=== PATIENT | male | born 1945 | race Caucasian/White ===

== ENCOUNTER 2019-12-10 17:03 | Emergency (ER) | payer MEDICARE, OTHER ==
[~2019-12-10] VITALS: Ht 180.3 cm; Wt 117.9 kg
[~2019-12-10 17:03] MED LIST: AMANTADINE; AMIODARONE; HUMALOG; LANTUS; LISINOPRIL; LOPRESSOR; [UNRECOGNIZED DRUG - OTHER]; amlodipine; calcium; fish oil
--- OUTSIDE RECORDS SUMMARY | 2019-12-10 17:05 | XMS REPORT | Summary of Care ---
Author Author [facility] [[email or web address]] - Health Organization [facility] [[email or web address]] - Health Address Unknown Phone Unavailable Care Team Providers Care Executive Chef Name Role Phone Stefan Allison PCP Reason for Visit * Reason Comments Thyroid Problem 4 month follow up Diabetes 4 month follow up Encounter Details Care Team Description Date Type Department Miguel Patel MD [address] [place] [id number] Hypoglycemia due to insulin (Primary Dx); Type 2 diabetes mellitus with stage 2 chronic kidney disease, with long-term current use of insulin; Type 2 diabetes mellitus without complication, with long-term current use of insulin; Postoperative hypothyroidism; History of thyroid cancer; Chronic atrial fibrillation 06/21/2019 Office Visit [facility] Endocrinology, [address] [address] Allergies Comments Active Allergy Reactions Severity Noted Date Iodine contrast* per patient Shakes Shaking Shaking Iodine And Iodide Other - See High 06/21/2008 Containing Products comments, Palpitations documented as of this encounter (statuses as of 06/21/2019) Medications End Date Status Medication Sig Dispensed Refills Start Date Active furosemide 40 mg tablet Take 40 mg by 0 mouth daily. Active tamsulosin 0.4 mg 24 hr Take by 0 capsule mouth daily. Active lisinopril 40 mg tablet Take 40 mg by 0 mouth daily. Active warfarin 5 mg tablet Take 5 mg by 0 mouth. Active glucagon 1 mg injection Inject 1 mg 0 intravenously once now. Active syringe-needle,insulin,0. 0 5 mL (BD INSULIN SYRINGE MISC) Active linaclotide (LINZESS) 145 Take by 0 mcg capsule mouth. Active amiodarone 100 mg tablet Take 100 mg 0 by mouth daily. Active amLODIPine 10 mg tablet Take 10 mg by 0 mouth daily. Active metoprolol tartrate 50 mg Take 50 mg by 0 tablet mouth 2 (two) times daily. Active polyethylene glycol Take 17 g by 0 (MIRALAX) 17 gram/dose mouth daily. powder Active rosuvastatin 10 mg tablet Take 10 mg by 0 mouth at bedtime. Active flaxseed oil (OMEGA 3 Take by 0 ORAL) mouth. Active calcium carbonate/vitamin Take by 0 D2 (CALCIUM 600 + D ORAL) mouth. Active finasteride 5 mg tablet Take 5 mg by 0 mouth daily. Active febuxostat (ULORIC ORAL) Take by 0 mouth. Active Multivitamins with Take by 0 Fluoride (MULTI-VITAMIN mouth. ORAL) Active NIACIN, BULK, MISC 0 Active LEVOTHYROXINE 200 mcg TAKE 1 TABLET 90 tablet 0 tabletIndications: BY MOUTH 9 Acquired hypothyroidism EVERY DAY IN THE MORNING Active Insulin [place], 5 needles a 500 Each 1 Disposable, (BD day 9 ULTRA-FINE MICRO PEN NEEDLE) 32 gauge x 1/4" NdleIndications: Type 2 diabetes mellitus with stage 2 chronic kidney disease, with long-term current use of insulin Active insulin glargine (LANTUS inject 60 60 mL U-100 INSULIN) 100 Units under 9 unit/mL the skin at injectionIndications: bedtime. Type 2 diabetes mellitus without complication, with long-term current use of insulin Active insulin aspart RAPID inject 15 5 Vial 1 (NOVOLOG U-100 INSULIN Units under 9 ASPART) 100 unit/mL the skin 3 injectionIndications: (three) times Type 2 diabetes mellitus daily with with stage 2 chronic meals. kidney disease, with long-term current use of insulin 06/21/2019 Discontinued insulin aspart RAPID inject under 0 (NOVOLOG U-100 INSULIN the skin 3 ASPART) 100 unit/mL (three) times injection daily with meals. 06/21/2019 Discontinued insulin aspart U-100 inject 15 3 Box (NOVOLOG FLEXPEN U-100 Units under 9 INSULIN) 100 unit/mL the skin 3 injectionIndications: (three) times Type 2 diabetes mellitus daily before with stage 2 chronic meals. kidney disease, with long-term current use of insulin 06/21/2019 Discontinued Insulin [place], 5 needles a 500 Each Disposable, (BD day ULTRA-FINE MICRO PEN NEEDLE) 32 gauge x 1/4" NdleIndications: Type 2 diabetes mellitus with stage 2 chronic kidney disease, with long-term current use of insulin 06/21/2019 Discontinued LANTUS U-100 INSULIN 100 INJECT 50 90 mL 0 unit/mL UNITS 9 solutionIndications: Type SUBCUTANEOUSL 2 diabetes mellitus Y 2 TIMES A without complication, DAY with long-term current use of insulin documented as of this encounter (statuses as of 06/21/2019) Active Problems Problem Noted Date Type 2 diabetes mellitus with stage 2 chronic kidney disease, with 02/19/2019 long-term current use of insulin Postoperative hypothyroidism 02/19/2019 History of thyroid cancer 02/19/2019 Chronic atrial fibrillation 02/19/2019 documented as of this encounter (statuses as of 06/21/2019) Social History Date Tobacco Use Types Packs/Day Years Used Former Smoker Smokeless Tobacco: Former User Sex Assigned at Date Recorded Not on file Industry Job Start Date Occupation Not on file Not on file Not on file Travel End Travel History Travel Start No recent travel history available. documented as of this encounter Last Filed Vital Signs Reading Time Taken Comments Vital Sign 119/71 06/21/2019 10:24 AM CDT Blood Pressure 94 06/21/2019 10:24 AM CDT Pulse 36.3 C (97.3 F) 06/21/2019 10:24 AM CDT Temperature 17 06/21/2019 10:24 AM CDT Respiratory Rate - - Oxygen Saturation - - Inhaled Oxygen Concentration 119.7 kg (263 lb 14.4 oz) 06/21/2019 10:24 AM CDT Weight 180.3 cm (5' 11") 06/21/2019 10:24 AM CDT Height 36.81 06/21/2019 10:24 AM CDT Body Mass Index documented in this encounter Progress Notes * Miguel Patel MD - 06/21/2019 10:30 AM CDT Cc: Chief Complaint Patient presents with Thyroid Problem 4 month follow up Diabetes 4 month follow up Michael Zamora is a 73 year old male. Patient hypothyroid since he had his thyroid removed due to thyroid cancer. He is on large dose of thyroids, need his thyroid labs today. Known diabetic with kidney demage on large doses of insulins. Allergies Michael is allergic to iodine and iodide containing products. Medications Outpatient Medications Prior to Visit Medication Sig Dispense Refill LEVOTHYROXINE 200 mcg tablet TAKE 1 TABLET BY MOUTH EVERY DAY IN THE MORNING 90 tablet 0 amiodarone 100 mg tablet Take 100 mg by mouth daily. amLODIPine 10 mg tablet Take 10 mg by mouth daily. calcium carbonate/vitamin D2 (CALCIUM 600 + D ORAL) Take by mouth. febuxostat (ULORIC ORAL) Take by mouth. finasteride 5 mg tablet Take 5 mg by mouth daily. flaxseed oil (OMEGA 3 ORAL) Take by mouth. furosemide 40 mg tablet Take 40 mg by mouth daily. linaclotide (LINZESS) 145 mcg capsule Take by mouth. lisinopril 40 mg tablet Take 40 mg by mouth daily. metoprolol tartrate 50 mg tablet Take 50 mg by mouth 2 (two) times daily. Multivitamins with Fluoride (MULTI-VITAMIN ORAL) Take by mouth. NIACIN, BULK, MISC polyethylene glycol (MIRALAX) 17 gram/dose powder Take 17 g by mouth daily. syringe-needle,insulin,0.5 mL (BD INSULIN SYRINGE MISC) tamsulosin 0.4 mg 24 hr capsule Take by mouth daily. warfarin 5 mg tablet Take 5 mg by mouth. LANTUS U-100 INSULIN 100 unit/mL solution INJECT 50 UNITS SUBCUTANEOUSLY 2 T IMES A DAY 90 mL 0 insulin aspart U-100 (NOVOLOG FLEXPEN U-100 INSULIN) 100 unit/mL injection i nject 15 Units under the skin 3 (three) times daily before meals. 3 Box 1 Insulin [place], Disposable, (BD ULTRA-FINE MICRO PEN NEEDLE) 32 gauge x 1/4 " Ndle 5 needles a day 500 Each 1 glucagon 1 mg injection Inject 1 mg intravenously once now. rosuvastatin 10 mg tablet Take 10 mg by mouth at bedtime. insulin aspart RAPID (NOVOLOG U-100 INSULIN ASPART) 100 unit/mL injection in ject under the skin 3 (three) times daily with meals. No facility-administered medications prior to visit. Histories Past Medical History: Diagnosis Date Anemia Asthma Atrial fibrillation Diabetes High cholesterol Hypertension Obesity Sleep apnea Thyroid activity decreased Past Surgical History: Procedure Laterality Date APPENDECTOMY COLONOSCOPY THYROIDECTOMY Social History Socioeconomic History Marital status: Spouse name: Not on file Number of children: Not on file Years of education: Not on file Highest education level: Not on file Occupational History Not on file Social Needs Financial resource strain: Not on file Food insecurity: Worry: Not on file Inability: Not on file Transportation needs: Medical: Not on file Non-medical: Not on file Tobacco Use Smoking status: Former Smoker Smokeless tobacco: Former User Substance and Sexual Activity Alcohol use: Not on file Drug use: Not on file Sexual activity: Not on file Lifestyle Physical activity: Days per week: Not on file Minutes per session: Not on file Stress: Not on file Relationships Social connections: Talks on phone: Not on file Gets together: Not on file Attends religion service: Not on file Active member of club or organization: Not on file Attends meetings of clubs or organizations: Not on file Relationship status: Not on file Intimate partner violence: Fear of current or ex partner: Not on file Emotionally abused: Not on file Physically abused: Not on file Forced sexual activity: Not on file Other Topics Concern Not on file Social History Narrative Not on file No family history on file. Review of Systems Constitutional: Negative. HENT: Negative. Respiratory: Negative. Cardiovascular: Negative. Gastrointestinal: Negative. Musculoskeletal: Negative. Neurological: Negative. Psychiatric/Behavioral: Negative. Endocrine: Endocrine negative Vital Signs BP 119/71 (BP Location: Left arm, Patient Position: Sitting, BP CUFF SIZE: Adult Large) | Pulse 94 | Temp 36.3 C (97.3 F) (Oral) | Resp 17 | Ht 5' 11" ( 1.803 m) | Wt 263 lb 14.4 oz (119.7 kg) | BMI 36.81 kg/m Physical Exam Constitutional: He is oriented to person, place, and time. He appears well-devel oped and well-nourished. Eyes: Pupils are equal, round, and reactive to light. Conjunctivae and EOM are n ormal. Left eye exhibits no discharge. No scleral icterus. Neck: Normal range of motion. Neck supple. No JVD present. No tracheal deviation present. No thyromegaly present. Cardiovascular: Normal rate, regular rhythm, normal heart sounds and intact dist al pulses. Exam reveals no gallop and no friction rub. No murmur heard. Pulmonary/Chest: Effort normal and breath sounds normal. No respiratory distress . He has no wheezes. He has no rales. He exhibits no tenderness. Abdominal: Soft. Bowel sounds are normal. He exhibits no distension and no mass. There is no tenderness. There is no rebound and no guarding. No hernia. Musculoskeletal: Normal range of motion. He exhibits no edema, tenderness or def ormity. Lymphadenopathy: He has no cervical adenopathy. Neurological: He is alert and oriented to person, place, and time. He displays n ormal reflexes. No cranial nerve deficit or sensory deficit. He exhibits normal muscle tone. Coordination normal. Skin: Skin is warm and dry. Capillary refill takes less than 2 seconds. No rash noted. No erythema. No pallor. Psychiatric: He has a normal mood and affect. His behavior is normal. Judgment a nd thought content normal. Assessment/Plan Michael was seen today for thyroid problem and diabetes. Diagnoses and all orders for this visit: Hypoglycemia due to insulin Type 2 diabetes mellitus with stage 2 chronic kidney disease, with long-term cur rent use of insulin - Insulin [place], Disposable, (BD ULTRA-FINE MICRO PEN NEEDLE) 32 gauge x 1 /4" Ndle; 5 needles a day - insulin aspart RAPID (NOVOLOG U-100 INSULIN ASPART) 100 unit/mL injection; inject 15 Units under the skin 3 (three) times daily with meals. Type 2 diabetes mellitus without complication, with long-term current use of ins ulin - insulin glargine (LANTUS U-100 INSULIN) 100 unit/mL injection; inject 60 U nits under the skin at bedtime. Postoperative hypothyroidism - THYROID STIMULATING HORMONE; Future History of thyroid cancer Chronic atrial fibrillation Patient was educated and enquired about diabetic foot evaluation and management. Patient was reminded about risks for diabetic foot as duration of disease, smoki ng, poor glycemic control, diabetic cardiovascular, renal and retinal complicati ons and poor wound healing. Patient was questioned about presence of foot deformity, decrease in pain sensat ion and altered pressure perception, discoloration, tender spots, gait balance a nd limited feet joint mobility. Patient feet were checked for anatomic deformity, ulceration between the toes an d underneath, callous formation, erythema, warmth and tenderness and swelling. Penal pulse were felt and patient was asked about evidence of impaired circulati on and skin damage. Feet were examined for presence of claw foot, collapse of arch, loss of small in trinsic foot muscles, any bony prominence and deep tendon ankle reflexes. Enquiry was made about smoking,claudication, use of heating devices, lower limb bypass procedures, amputations, therapeutic foot wear or customized shoes use. Patient was reminded to examine feet daily between and underneath toe toes over pressure areas with proper light. Not to wear shoes that are tight and wash feet with luke warm water daily. Toe nails to be trimed to the shape of toes. Need to calculate ankle brachial indicis and examination monofilament were discu ssed. No ulcers or callus. Thyroid doses to be adjusted after todays labs. I have reduced his insulin doses due to nocturnal hypoglycemias. documented in this encounter Plan of Treatment Care Team Description Date Type Specialty Miguel Patel MD [address] [place] [id number] [phone] 09/21/2019 Office Visit Endocrinology Diabetes & Metabolism Order Schedule Name Type Priority Associated Diagnoses Expected: 06/21/2019, Expires: 07/22/2019 THYROID STIMULATING LAB Routine Postoperative HORMONE hypothyroidism Health Maintenance Due Date Last Done Comments HEPATITIS C (HCV) SCREEN 1945 EYE EXAM 1955 LDL-C 1955 URINE MICROALBUMIN 1955 FOOT EXAM 1963 DTaP,Tdap,and Td Vaccines 1964 (1 - Tdap) COLONOSCOPY 1995 Zoster Recombinant 1995 Vaccine (SHINGRIX) (1 of 2) LUNG CANCER SCREEN: 2000 Recommended for age 55-80 with 30 + pack year history Medicare Wellness Visit 2010 PNEUMOCOCCAL VACCINES 65+ 2010 (1 of 2 - PCV13) INFLUENZA VACCINE 07/25/2019 09/05/2017, 09/15/2013, 08/10/2012, Additional history exists HgA1C 08/22/2019 02/19/2019 CREATININE (SERUM) 02/20/2020 02/19/2019 documented as of this encounter Results Not on filedocumented in this encounter Visit Diagnoses Diagnosis Hypoglycemia due to insulin - Primary Type 2 diabetes mellitus with stage 2 chronic kidney disease, with long-term current use of insulin Type 2 diabetes mellitus without complication, with long-term current use of insulin Postoperative hypothyroidism Postsurgical hypothyroidism History of thyroid cancer Personal history of malignant neoplasm of thyroid Chronic atrial fibrillation Atrial fibrillation documented in this encounter Insurance Type Payer Benefit Subscriber ID Effective Phone Address Plan / Dates Group Medicare Adv O [facility] [id number] 2017-P MANAGED MEDICARE HEALTHCARE resent MEDICARE ADV O documented as of this encounter
--- OUTSIDE RECORDS SUMMARY | 2019-12-10 17:05 | XMS REPORT | Summary of Care ---
Author Author [facility] - Health Organization [facility] - Health Address Unknown Phone Unavailable Care Team Providers Care Spanish Professor Name Role Phone Stefan Allison PCP Reason for Visit * Reason Comments Thyroid Problem 4 month follow up Diabetes 4 month follow up Encounter Details Care Team Description Date Type Department Miguel Patel MD [address] [place] [phone] Hypoglycemia due to insulin (Primary Dx); Type 2 diabetes mellitus with stage 2 chronic kidney disease, with long-term current use of insulin; Type 2 diabetes mellitus without complication, with long-term current use of insulin; Postoperative hypothyroidism; History of thyroid cancer; Chronic atrial fibrillation 06/21/2019 Office Visit [facility] Endocrinology, [address] [phone] Allergies Comments Active Allergy Reactions [...] EVERY DAY IN THE MORNING Active Insulin [place], 5 needles a 500 Each 1 Disposable, [...] current use of insulin 06/21/2019 Discontinued Insulin [place], 5 needles a 500 Each Disposable, (BD [...] daily before meals. 3 Box 1 Insulin [place], Disposable, (BD ULTRA-FINE MICRO PEN NEEDLE) 32 [...] file Gets together: Not on file Attends alevism service: Not on file Active member of [...] cur rent use of insulin - Insulin [place], Disposable, (BD ULTRA-FINE MICRO PEN NEEDLE) 32 [...] Description Date Type Specialty Miguel Patel MD [address] [place] [id number] [phone] 09/21/2019 Office Visit Endocrinology Diabetes & Metabolism [...] Plan / Dates Group Medicare Adv O [facility] [id number] 2017-P MANAGED MEDICARE HEALTHCARE resent MEDICARE ADV O documented as of this encounter
--- OUTSIDE RECORDS SUMMARY | 2019-12-10 17:05 | XMS REPORT ---
Author Author [facility] Address Unknown Phone Unavailable Care Team Providers Care Inserter Name Role Phone ZARIA SANFORD Unavailable Unavailable Payers Payer Name Policy Type Policy Number Effective Date Expiration Date Problems This patient has no known problems. Allergies, Adverse Reactions, Alerts Allergy Name Allergy Type Status Severity Reaction(s) Onset Date Inactive Date Treating Clinician Comments iodine DA Active MO 2017-09-03 00:00:00 minocycline DA Active CA 2017-09-03 00:00:00 Medications This patient has no known medications. Results Test Description Test Time Test Comments Text Results Atomic Results Result Comments BASIC METABOLIC PANEL 2018-10-01 11:27:00 SODIUM (BEAKER) (test azpq=815) 143 meq/L 136-145 POTASSIUM (BEAKER) (test gniu=900) 3.4 meq/L 3.5-5.1 CHLORIDE (BEAKER) (test aags=789) 106 meq/L 98-107 CO2 (BEAKER) (test rtxs=846) 25 meq/L 22-29 BLOOD UREA NITROGEN (BEAKER) (test wfob=293) 27 mg/dL 7-21 CREATININE (BEAKER) (test mxwa=676) 1.91 mg/dL 0.57-1.25 GLUCOSE RANDOM (BEAKER) (test irgr=618) 120 mg/dL 70-105 CALCIUM (BEAKER) (test dsrg=854) 8.1 mg/dL 8.4-10.2 EGFR (BEAKER) (test zvwv=7485) 35 mL/min/1.73 sq m ESTIMATED GFR IS NOT ACCURATE CREATININE CLEARANCE IN PREDICTING GLOMERULAR FILTRATION RATE. ESTIMATED GFR IS NOT APPLICABLE FOR DIALYSIS PATIENTS. PROTHROMBIN TIME/[id number] 11:15:00* Test Item Value Reference Range Comments PROTIME (BEAKER) (test vvkp=506) 22.5 seconds 11.7-14.7 INR (BEAKER) (test hift=014) 2.0 <=5.9 RECOMMENDED COUMADIN/WARFARIN INR THERAPY RANGESSTANDARD DOSE: 2.0 - 3.0 Inclu bhaskar: PROPHYLAXIS for venous thrombosis, systemic embolization; TREATMENT for ana ous thrombosis and/or pulmonary embolus.HIGH RISK: Target INR is 2.5-3.5 for pat ients with mechanical heart valves.Within 24 hours, if on CoumadinCBC W/PLT COUNT & AUTO [id number] 11:09:00* Test Item Value Reference Range Comments WHITE BLOOD CELL COUNT (BEAKER) (test wmth=294) 6.5 K/ L 3.5-10.5 RED BLOOD CELL COUNT (BEAKER) (test qcrh=739) 4.59 M/ L 4.63-6.08 HEMOGLOBIN (BEAKER) (test rkda=494) 12.1 GM/DL 13.7-17.5 HEMATOCRIT (BEAKER) (test ajgk=733) 39.2 % 40.1-51.0 MEAN CORPUSCULAR VOLUME (BEAKER) (test ppka=299) 85.4 fL 79.0-92.2 MEAN CORPUSCULAR HEMOGLOBIN (BEAKER) (test qggw=391) 26.4 pg 25.7-32.2 MEAN CORPUSCULAR HEMOGLOBIN CONC (BEAKER) (test iaym=505) 30.9 GM/DL 32.3-36.5 RED CELL DISTRIBUTION WIDTH (BEAKER) (test quzg=986) 15.8 % 11.6-14.4 PLATELET COUNT (BEAKER) (test hvfq=904) 163 K/CU MM 150-450 MEAN PLATELET VOLUME (BEAKER) (test qgov=337) 10.3 fL 9.4-12.4 NUCLEATED RED BLOOD CELLS (BEAKER) (test nuwi=909) 0 /100 WBC 0-0 NEUTROPHILS RELATIVE PERCENT (BEAKER) (test hdoa=267) 77 % LYMPHOCYTES RELATIVE PERCENT (BEAKER) (test skom=032) 10 % MONOCYTES RELATIVE PERCENT (BEAKER) (test vszq=356) 8 % EOSINOPHILS RELATIVE PERCENT (BEAKER) (test bbjn=518) 4 % BASOPHILS RELATIVE PERCENT (BEAKER) (test xyug=679) 1 % NEUTROPHILS ABSOLUTE COUNT (BEAKER) (test dqir=705) 4.96 K/ L 1.78-5.38 LYMPHOCYTES ABSOLUTE COUNT (BEAKER) (test ywsc=044) 0.67 K/ L 1.32-3.57 MONOCYTES ABSOLUTE COUNT (BEAKER) (test aone=797) 0.49 K/ L 0.30-0.82 EOSINOPHILS ABSOLUTE COUNT (BEAKER) (test xnfu=806) 0.28 K/ L 0.04-0.54 BASOPHILS ABSOLUTE COUNT (BEAKER) (test fwcp=912) 0.05 K/ L 0.01-0.08 IMMATURE GRANULOCYTES-RELATIVE PERCENT (BEAKER) (test srsz=8284) 0 % 0-1 PROTHROMBIN TIME/[id number] 11:11:00* Test Item Value Reference Range Comments PROTIME (BEAKER) (test hokr=883) 29.3 seconds 11.7-14.7 INR (BEAKER) (test vuyc=735) 2.8 <=5.9 RECOMMENDED COUMADIN/WARFARIN INR THERAPY RANGESSTANDARD DOSE: 2.0 - 3.0 Inclu bhaskar: PROPHYLAXIS for venous thrombosis, systemic embolization; TREATMENT for ana ous thrombosis and/or pulmonary embolus.HIGH RISK: Target INR is 2.5-3.5 for pat ients with mechanical heart valves.BASIC METABOLIC [id number] 11:05:00* Test Item Value Reference Range Comments SODIUM (BEAKER) (test sfbs=761) 140 meq/L 136-145 POTASSIUM (BEAKER) (test kffp=821) 3.6 meq/L 3.5-5.1 CHLORIDE (BEAKER) (test ptej=906) 105 meq/L 98-107 CO2 (BEAKER) (test jyck=815) 24 meq/L 22-29 BLOOD UREA NITROGEN (BEAKER) (test owqk=132) 25 mg/dL 7-21 CREATININE (BEAKER) (test sfas=409) 1.50 mg/dL 0.57-1.25 GLUCOSE RANDOM (BEAKER) (test mxgq=452) 156 mg/dL 70-105 CALCIUM (BEAKER) (test vpqq=903) 8.6 mg/dL 8.4-10.2 EGFR (BEAKER) (test qgkx=7046) 46 mL/min/1.73 sq m ESTIMATED GFR IS NOT ACCURATE CREATININE CLEARANCE IN PREDICTING GLOMERULAR FILTRATION RATE. ESTIMATED GFR IS NOT APPLICABLE FOR DIALYSIS PATIENTS. CBC W/PLT COUNT & AUTO [id number] 10:36:00* Test Item Value Reference Range Comments WHITE BLOOD CELL COUNT (BEAKER) (test bpcr=282) 7.2 K/ L 4.0-10.0 RED BLOOD CELL COUNT (BEAKER) (test ordi=798) 4.25 M/ L 4.20-5.80 HEMOGLOBIN (BEAKER) (test wzxe=463) 12.3 GM/DL 13.0-16.8 HEMATOCRIT (BEAKER) (test xdlp=802) 38.2 % 40.0-50.0 MEAN CORPUSCULAR VOLUME (BEAKER) (test wjxu=267) 89.9 fL 82.0-98.0 MEAN CORPUSCULAR HEMOGLOBIN (BEAKER) (test eujb=420) 29.0 pg 27.0-33.0 MEAN CORPUSCULAR HEMOGLOBIN CONC (BEAKER) (test bliy=898) 32.2 GM/DL 32.0-36.0 RED CELL DISTRIBUTION WIDTH (BEAKER) (test ertk=282) 14.8 % 10.3-14.2 PLATELET COUNT (BEAKER) (test lgqz=490) 147 K/CU MM 150-430 MEAN PLATELET VOLUME (BEAKER) (test pzly=777) 8.3 fL 6.5-10.5 NUCLEATED RED BLOOD CELLS (BEAKER) (test ihyb=234) 0 /100 WBC 0-0 NEUTROPHILS RELATIVE PERCENT (BEAKER) (test hyjd=247) 71 % LYMPHOCYTES RELATIVE PERCENT (BEAKER) (test ytri=838) 17 % MONOCYTES RELATIVE PERCENT (BEAKER) (test oskl=435) 7 % EOSINOPHILS RELATIVE PERCENT (BEAKER) (test kphp=576) 4 % BASOPHILS RELATIVE PERCENT (BEAKER) (test fjer=067) 1 % NEUTROPHILS ABSOLUTE COUNT (BEAKER) (test gujf=258) 5.12 K/ L 1.80-8.00 LYMPHOCYTES ABSOLUTE COUNT (BEAKER) (test fzjj=003) 1.25 K/ L 1.48-4.50 MONOCYTES ABSOLUTE COUNT (BEAKER) (test dfyd=812) 0.52 K/ L 0.00-1.30 EOSINOPHILS ABSOLUTE COUNT (BEAKER) (test cxoy=234) 0.30 K/ L 0.00-0.50 BASOPHILS ABSOLUTE COUNT (BEAKER) (test kezv=846) 0.04 K/ L 0.00-0.20 0.00
--- OUTSIDE RECORDS SUMMARY | 2019-12-10 17:06 | XMS REPORT | Summary of Care ---
Author Author [facility] - Health Organization [facility] - Health Address Unknown Phone Unavailable Care Team Providers Care Tax Processor Name Role Phone Stefan Allison PCP Reason for Visit * Reason Comments Thyroid Problem 4 month follow up Diabetes 4 month follow up Encounter Details Care Team Description Date Type Department Miguel Patel MD [address] [place] [address] Hypoglycemia due to insulin (Primary Dx); Type 2 diabetes mellitus with stage 2 chronic kidney disease, with long-term current use of insulin; Postoperative hypothyroidism; History of thyroid cancer; Chronic atrial fibrillation 06/21/2019 Office Visit [facility] Endocrinology, [address] [address] Allergies Comments Active Allergy Reactions Severity Noted Date Iodine contrast* per patient Shakes Shaking Shaking Iodine And Iodide Other - See High 06/21/2008 Containing Products comments, Palpitations documented as of this encounter (statuses as of 06/22/2019) Medications End Date Status Medication Sig Dispensed [...] ORAL) Active NIACIN, BULK, MISC 0 Active Insulin [place], 5 needles a 500 Each 1 Disposable, (BD day 9 ULTRA-FINE MICRO PEN NEEDLE) 32 gauge x 1/4" NdleIndications: Type 2 diabetes mellitus with stage 2 chronic kidney disease, with long-term current use of insulin Active insulin glargine (LANTUS inject 60 60 mL U-100 INSULIN) 100 Units under 9 unit/mL injection the skin at bedtime. Active insulin aspart RAPID inject 15 5 Vial 1 (NOVOLOG U-100 INSULIN Units under 9 ASPART) 100 unit/mL the skin 3 injectionIndications: (three) times Type 2 diabetes mellitus daily with with stage 2 chronic meals. kidney disease, with long-term current use of insulin Active levothyroxine 175 mcg Take 1 tablet 90 tablet 1 tabletIndications: by mouth 9 Postoperative every hypothyroidism morning. 06/21/2019 Discontinued insulin aspart RAPID inject under [...] current use of insulin 06/21/2019 Discontinued Insulin [place], 5 needles a 500 Each 1 Disposable, [...] DAY with long-term current use of insulin 06/22/2019 Discontinued LEVOTHYROXINE 200 mcg TAKE 1 TABLET 90 tablet 0 tabletIndications: BY MOUTH 9 Acquired hypothyroidism EVERY DAY IN THE MORNING documented as of this encounter (statuses as of 06/22/2019) Active Problems Problem Noted Date Type 2 diabetes mellitus with stage 2 chronic kidney disease, with 02/19/2019 long-term current use of insulin Postoperative hypothyroidism 02/19/2019 History of thyroid cancer 02/19/2019 Chronic atrial fibrillation 02/19/2019 documented as of this encounter (statuses as of 06/22/2019) Social History Date Tobacco Use Types Packs/Day [...] documented in this encounter Progress Notes * Valencia Salmeron - 06/21/2019 10:30 AM CDT Venipuncture X 1 completed in left arm. Pt tolerated well. Labs completed by Miguel Salmeron * Miguel Patel MD - 06/21/2019 10:30 [...] daily before meals. 3 Box 1 Insulin [place], Disposable, (BD ULTRA-FINE MICRO PEN NEEDLE) 32 [...] file Gets together: Not on file Attends roman catholic service: Not on file Active member of [...] cur rent use of insulin - Insulin [place], Disposable, (BD ULTRA-FINE MICRO PEN NEEDLE) 32 [...] Description Date Type Specialty Miguel Patel MD [address] [place] [address] [phone] 09/21/2019 Office Visit Endocrinology Diabetes & Metabolism Order Schedule Name Type Priority Associated Diagnoses 1 Occurrences starting 06/22/2019 until 12/23/2019 THYROID STIMULATING LAB Routine Postoperative HORMONE hypothyroidism 1 Occurrences starting 06/22/2019 until 06/22/2020 GLYCOSYLATED HEMOGLOBIN LAB Routine Type 2 diabetes mellitus (A1C) with stage 2 chronic kidney disease, with long-term current use of insulin 1 Occurrences starting 06/22/2019 until 12/23/2019 COMP. METABOLIC PANEL LAB Routine Chronic atrial (28200) fibrillation Hypoglycemia due to insulin Health Maintenance Due Date Last Done Comments [...] 02/20/2020 02/19/2019 documented as of this encounter Procedures Comments Procedure Name Priority Date/Time Associated Diagnosis THYROID STIMULATING Routine 06/21/2019 Postoperative HORMONE 10:59 AM CDT hypothyroidism documented in this encounter Results * THYROID STIMULATING HORMONE (06/21/2019 10:59 AM CDT) TSH 0.28 (L)Comment: Biotin has 0.45 - 4.70 mIU/L [facility] been reported to cause a SERVICES negative bias, interpret results relative to patient's use of biotin. 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
--- OUTSIDE RECORDS SUMMARY | 2019-12-10 17:06 | XMS REPORT | Summary of Care ---
Author Author [facility] - Health Organization [facility] - Health Address Unknown Phone Unavailable Care Team Providers Care Server Programmer Name Role Phone Stefan Allison PCP Reason for Visit * Reason Comments Refill Request Encounter Details Care Team Description Date Type Department Miguel Patel MD [address] [place] [address] [phone] Refill Request 07/30/2019 Refill [facility] Endocrinology, [address] [address] Allergies Comments Active Allergy Reactions Severity Noted Date Iodine contrast* per patient Shakes Shaking Shaking Iodine And Iodide Other - See High 06/21/2008 Containing Products comments, Palpitations documented as of this encounter (statuses as of 07/30/2019) Medications End Date Status Medication Sig Dispensed [...] Active NIACIN, BULK, MISC 0 Active Insulin [place], 5 needles a 500 Each 1 Disposable, (BD day 9 ULTRA-FINE MICRO PEN NEEDLE) 32 gauge x 1/4" NdleIndications: Type 2 diabetes mellitus with stage 2 chronic kidney disease, with long-term current use of insulin Active insulin glargine (LANTUS inject 60 60 mL 1 U-100 INSULIN) 100 Units under 9 unit/mL [...] by mouth 9 Postoperative every hypothyroidism morning. documented as of this encounter (statuses as of 07/30/2019) Active Problems Problem Noted Date Type 2 diabetes mellitus with stage 2 chronic kidney disease, with 02/19/2019 long-term current use of insulin Postoperative hypothyroidism 02/19/2019 History of thyroid cancer 02/19/2019 Chronic atrial fibrillation 02/19/2019 documented as of this encounter (statuses as of 07/30/2019) Social History Date Tobacco Use Types Packs/Day Years Used Former Smoker Smokeless Tobacco: Former User Sex Assigned at Date Recorded Not on file Industry Job Start Date Occupation Not on file Not on file Not on file Travel End Travel History Travel Start No recent travel history available. documented as of this encounter Last Filed Vital Signs Not on filedocumented in this encounter Plan of Treatment Care Team Description Date Type Specialty Miguel Patel MD [address] [place] [address] [phone] 09/21/2019 Office Visit Endocrinology Diabetes & Metabolism Health Maintenance Due Date Last Done Comments [...] (1 of 2 - PCV13) INFLUENZA VACCINE (#1) 2019 09/05/2017, 09/15/2013, 08/10/2012, Additional history exists HgA1C 08/22/2019 02/19/2019 CREATININE (SERUM) 02/20/2020 02/19/2019 documented as of this encounter Results Not on filedocumented in this encounter Visit Diagnoses Diagnosis Acquired hypothyroidism Unspecified hypothyroidism documented in this encounter Insurance Type Payer Benefit Subscriber ID Effective Phone Address Plan / Dates Group Medicare Adv O All [employer] [facility] [id number] 2017-P MANAGED MEDICARE HEALTHCARE resent MEDICARE ADV HMO documented as of this encounter
--- OUTSIDE RECORDS SUMMARY | 2019-12-10 17:06 | XMS REPORT | Summary of Care ---
Author Author [facility] - Health Organization [facility] - Health Address Unknown Phone Unavailable Care Team Providers Care Black Pickler Name Role Phone Stefan Allison PCP Reason for Visit * Reason Comments Thyroid Problem 4 month follow up Diabetes 4 month follow up Encounter Details Care Team Description Date Type Department Miguel Patel MD [address] [place] [phone] Hypoglycemia due to insulin (Primary Dx); Type 2 diabetes mellitus with stage 2 chronic kidney disease, with long-term current use of insulin; Type 2 diabetes mellitus without complication, with long-term current use of insulin; Postoperative hypothyroidism; History of thyroid cancer; Chronic atrial fibrillation 06/21/2019 Office Visit [facility] Endocrinology, [address] [phone] Allergies Comments Active Allergy Reactions [...] EVERY DAY IN THE MORNING Active Insulin [place], 5 needles a 500 Each 1 Disposable, [...] current use of insulin 06/21/2019 Discontinued Insulin [place], 5 needles a 500 Each Disposable, (BD day 9 ULTRA-FINE MICRO PEN [...] daily before meals. 3 Box 1 Insulin [place], Disposable, (BD ULTRA-FINE MICRO PEN NEEDLE) 32 [...] file Gets together: Not on file Attends latter-day service: Not on file Active member of [...] cur rent use of insulin - Insulin [place], Disposable, (BD ULTRA-FINE MICRO PEN NEEDLE) 32 [...] Description Date Type Specialty Miguel Patel MD [address] [place] [address] [phone] 09/21/2019 Office Visit Endocrinology Diabetes & Metabolism Date/Time Name Type Priority Associated Diagnoses 06/21/2019 10:59 AM CDT THYROID STIMULATING LAB Routine Postoperative HORMONE hypothyroidism Order Schedule Name Type Priority Associated Diagnoses [...] Plan / Dates Group Medicare Adv O [employer] [id number] 2017-P MANAGED MEDICARE HEALTHCARE resent MEDICARE ADV HMO documented as of this encounter
--- OUTSIDE RECORDS SUMMARY | 2019-12-10 17:06 | XMS REPORT | Summary of Care ---
Author Author [facility] - Health Organization [facility] - Health Address Unknown Phone Unavailable Care Team Providers Care Radar Engineering Teacher Name Role Phone Stefan Allison PCP Reason for Visit * Reason Comments Thyroid Problem 4 month follow up Diabetes 4 month follow up Encounter Details Care Team Description Date Type Department Miguel Patel MD [address] [place] [address] Hypoglycemia due to insulin (Primary Dx); Type 2 diabetes mellitus with stage 2 chronic kidney disease, with long-term current use of insulin; Type 2 diabetes mellitus without complication, with long-term current use of insulin; Postoperative hypothyroidism; History of thyroid cancer; Chronic atrial fibrillation 06/21/2019 Office Visit [facility] Endocrinology, [address] [phone] Allergies Comments Active Allergy Reactions [...] EVERY DAY IN THE MORNING Active Insulin [place], 5 needles a 500 Each 1 Disposable, [...] current use of insulin 06/21/2019 Discontinued Insulin [place], 5 needles a 500 Each Disposable, (BD [...] daily before meals. 3 Box 1 Insulin [place], Disposable, (BD ULTRA-FINE MICRO PEN NEEDLE) 32 [...] file Gets together: Not on file Attends restorationist service: Not on file Active member of [...] cur rent use of insulin - Insulin [place], Disposable, (BD ULTRA-FINE MICRO PEN NEEDLE) 32 [...] Date Type Specialty Miguel Patel MD [address] [place] [address] [phone] 09/21/2019 Office Visit Endocrinology Diabetes & Metabolism [...] Plan / Dates Group Medicare Adv O [facility] [id number] 2017-P MANAGED MEDICARE HEALTHCARE resent MEDICARE ADV O documented as of this encounter
--- OUTSIDE RECORDS SUMMARY | 2019-12-10 17:06 | XMS REPORT | Summary of Care ---
Author Author [facility] - Health Organization [facility] - Health Address Unknown Phone Unavailable Care Team Providers Care Wall Insulation Sprayer Name Role Phone Stefan Allison PCP Reason for Visit * Reason Comments Thyroid Problem 4 month follow up Diabetes 4 month follow up Encounter Details Care Team Description Date Type Department Miguel Patel MD [address] [place] [address] Hypoglycemia due to insulin (Primary Dx); Type 2 diabetes mellitus with stage 2 chronic kidney disease, with long-term current use of insulin; Type 2 diabetes mellitus without complication, with long-term current use of insulin; Postoperative hypothyroidism; History of thyroid cancer; Chronic atrial fibrillation 06/21/2019 Office Visit [facility] Endocrinology, [address] [phone] Allergies Comments Active Allergy Reactions [...] EVERY DAY IN THE MORNING Active Insulin [place], 5 needles a 500 Each 1 Disposable, [...] current use of insulin 06/21/2019 Discontinued Insulin [place], 5 needles a 500 Each Disposable, (BD [...] daily before meals. 3 Box 1 Insulin [place], Disposable, (BD ULTRA-FINE MICRO PEN NEEDLE) 32 [...] file Gets together: Not on file Attends sabianist service: Not on file Active member of [...] cur rent use of insulin - Insulin [place], Disposable, (BD ULTRA-FINE MICRO PEN NEEDLE) 32 [...] Date Type Specialty Miguel Patel MD [address] [place] [address] [phone] 09/21/2019 Office Visit Endocrinology Diabetes & Metabolism [...] Plan / Dates Group Medicare Adv O [employer] [id number] 2017-P MANAGED MEDICARE HEALTHCARE resent MEDICARE ADV HMO documented as of this encounter
--- OUTSIDE RECORDS SUMMARY | 2019-12-10 17:06 | XMS REPORT | Summary of Care ---
Author Author [facility] Organization [facility] Address Unknown Phone Unavailable Care Team Providers Care State Auditor Name Role Phone Jaswinder Allison PCP Unavailable Reason for Visit * Reason Comments Atrial Fibrillation annual visit Encounter Details Care Team Description Date Type Department Lisa Moe MD [address] [id number] Atrial Fibrillation (annual visit) 07/16/2019 Office Visit [facility] [address] [place], [place] [id number] [place] [address] Allergies Comments Active Allergy Reactions Severity Noted Date "shivers and cold" Iodine 11/07/2015 Minocin Nausea And 11/07/2015 Vomiting documented as of this encounter (statuses as of 07/16/2019) Medications End Date Status Medication Sig Dispensed Refills Start Date Active Tamsulosin HCl 0.4 MG Take 2 Caps 0 CAPS by mouth daily. Active Insulin Aspart (NOVOLOG Inject 10 0 SC) Units as directed 3 times daily. Active insulin glargine (LANTUS) Inject 60 0 100 UNIT/ML injection Units into the skin daily. Active finasteride (PROSCAR) 5 Take 1 Tab by 0 MG tablet mouth daily. Active Febuxostat (ULORIC OR) Take by 0 mouth daily. Active furosemide (LASIX) 40 MG Take 1 tablet 90 Tab 3 tablet by mouth 8 daily Active metoprolol (TOPROL-XL) 50 Take 1 Tab by 90 Tab 3 MG XL tablet mouth daily. 8 Active lisinopril (PRINIVIL, TAKE 1 TABLET 90 Tab 3 ZESTRIL) 40 MG tablet BY MOUTH 8 EVERY DAY Active warfarin (COUMADIN) 5 MG Take 5 mg by 0 tablet mouth daily. 4 Active amlodipine (NORVASC) 10 TAKE 1 TABLET 90 Tab 3 MG tablet BY MOUTH 8 EVERY DAY Active amiodarone (PACERONE) 200 TAKE 1 TABLET 180 Tab 1 MG tablet BY MOUTH 9 TWICE A DAY Active Uhpmv-5-vivn Ethyl Esters TAKE 1 180 Each 0 1 g CAPS CAPSULE BY 9 MOUTH TWICE A DAY Active levothyroxine (SYNTHROID) Take 175 mcg 0 175 MCG tablet by mouth daily. 07/16/2019 Discontinued levothyroxine (SYNTHROID) Take 1 tablet 90 Tab 0 137 MCG tablet by mouth 6 daily documented as of this encounter (statuses as of 07/16/2019) Active Problems Problem Noted Date Congestive heart failure with LV diastolic dysfunction, NYHA class 3 07/03/2018 Last Assessment & Plan: Symptoms have been successfully treated with furosemide which was increased during last visit in Jun 2018 to 40 mg qd Consider follow up nuclear stress testing now that he is stable and has lost 12 lbs in past year. Continue lisinopril 40 mg qd, metolprolol 50 mg qd Chronic ischemic heart disease 06/19/2016 Overview: Overview: ICD-10 A-fib 01/17/2016 Overview: S/p DCCV Nov 2013, Aug 2017, s/ PVI in 2015 for A flutter L ast Assessment & Plan: Recurrent A fib, now in junctional rhythm, rate 81, asymptomatic Reviewed with Dr. Grijalva, continue rate control on amiodarone 200 mg qd and metoprolol XL 50 mg qd INR therapeutic on warfarin CHADSVasc score is 4 PAF (paroxysmal atrial fibrillation) 12/21/2015 Overview: Overview: On Amio + coumadin. DCCV X 3. L ast Assessment & Plan: See above. Now s/p ablation 12/17/15. Hepatic cyst 11/08/2015 Overview: Observed on echo and evaluated by abdominal ultrasound. Liver enzymes within normal limits. L ast Assessment & Plan: Monitored by PCP. Patient aware of this finding, reports it is stable. Extreme obesity 06/30/2013 Last Assessment & Plan: Patient is aware of benefits of attaining more optimal weight, preventative diet, exercise when improved, see above. Arteriosclerosis of coronary artery 04/02/2013 Overview: Overview: Mild(40% LCx ) dx in 2005. L ast Assessment & Plan: After CHF symptoms have been adequately treated, nuclear stress test to exclude progression of CAD due to recent progression of symptoms, dyspnea, CHF Nuclear stress test April 2017: small fixed inferior defect Diabetes mellitus with polyneuropathy 11/19/2012 Overview: Overview: Link with 357.2 L ast Assessment & Plan: Follow up with PCP Weight loss needed. 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 DCCV X 3. L ast Assessment & Plan: Remains in sinus rhythm, confirmed by recent monitoring, now asymptomatic after amiodarone increased to 200 mg BID. Chronic coumadin, [id number] score of 3, recently increased for PT INR of 1.4 (after patient held coumadin for bleeding after tooth extraction), PT INR 2.1 today. S/p DCCV Nov 2015. Follow up with Dr. Ascencio has needed. Echo today shows mild LAE, mild LVH. Chronic kidney disease (CKD), stage III (moderate) 06/22/2012 Overview: Overview: Link with 250.40 L ast Assessment & Plan: Patient reports recent Creat 1.8 Scheduled for follow up with civil clerk in Jul. Monitor renal function after diuresis for CHF Diabetes 11/26/2011 Overview: Overview: Link with 583.81 / 585.3 Nephritis 11/26/2011 H/O malignant neoplasm of thyroid 10/29/2011 Airway hyperreactivity 01/23/2011 Obstructive apnea 07/03/2009 Last Assessment & Plan: CPAP Essential hypertension Last Assessment & Plan: Controlled on lisinopril 40 mg qd, metoprolol XL 50 mg qd, amlodipine 10 mg qd Dyspnea on exertion Last Assessment & Plan: Exacerbated by A fib, controlled ventricular response. Echocardiogram If persistent or worsening, consider cath to exclude progressive underlying CAD (abnormal nuclear stress in April 2017). Preventative lifestyle and weight loss discussed. Coronary atherosclerosis Overview: Nuclear stress test on 09/28/15: normal Patient reports last cath was at [facility] in 2004 with 40% narrowing, no PCI performed. L ast Assessment & Plan: High risk of CAD progression Nuclear stress test 2017: fixed inferior defect Order pharmacologic nuclear stress test after evaluate arrhythmia Asymptomatic, but not physically active Atrial fibrillation Overview: S/p successful DCCV with 250 J after LINDA in Nov 2013 L ast Assessment & Plan: S/p repeat DCCV yesterday, 09/[address] Ascencio, decreased amiodarone to 200 mg qd from BID. Mixed hyperlipidemia Overview: TG elevated 178, LDL at goal 76, HDL low 46 in Sep 07, 2015. L ast Assessment & Plan: Fasting lipids ordered on rosuvastatin 10 mg qd LDL goal < 70 Lower extremity edema Last Assessment & Plan: Venous Doppler negative in Jun 2018 Stable LE edema, controlled on lasix LE elevation, compression hose Sleep apnea, obstructive Last Assessment & Plan: Compliant with CPAP Recommend follow up sleep study for tx adjustment as needed. Obesity (BMI 30-39.9) Last Assessment & Plan: Preventative lifestyle Benefits of weight loss reviewed See instructions Renal insufficiency Overview: Creat 1.68 in 2014, improved from prior level L ast Assessment & Plan: Bloodwork ordered Diabetes mellitus Overview: HbA1C 6.9% In 2014 L ast Assessment & Plan: Follow up with performance instructor. Weight loss and other preventative measures reviewed. Nutritional counseling. See instructions. Asthma Thyroid cancer Last Assessment & Plan: Follow up with PCP and oncologist as needed. Thyroid medication has been recently adjusted. Aortic valve sclerosis Last Assessment & Plan: Stable by echo today, without significant stenosis. Non-coronary cusp is most affected by calcification. documented as of this encounter (statuses as of 07/16/2019) Immunizations Name Administration Dates Next Due Influenza Hd 09/05/2017 documented as of this encounter Social History Date Tobacco Use Types Packs/Day Years Used Former Smoker Smokeless Tobacco: Never Used Drinks/Week oz/Week Comments Alcohol Use No Sex Assigned at Date Recorded Not on file Industry Job Start Date Occupation Not on file Not on file Not on file Travel End Travel History Travel Start No recent travel history available. documented as of this encounter Last Filed Vital Signs Reading Time Taken Comments Vital Sign 116/60 07/16/2019 10:16 AM CDT Blood Pressure 60 07/16/2019 9:56 AM CDT Pulse - - Temperature - - Respiratory Rate - - Oxygen Saturation - - Inhaled Oxygen Concentration 118.4 kg (261 lb) 07/16/2019 9:56 AM CDT Weight 180.3 cm (5' 11") 07/16/2019 9:56 AM CDT Height 36.4 07/16/2019 9:56 AM CDT Body Mass Index documented in this encounter Patient Instructions * Patient Instructions* Lisa Moe MD - 07/16/2019 9:30 AM CDT Patient Instructions: You will be scheduled for an zio patch To re-evaluate your heart rhythm. Fasting bloodwork: today Lipids, CMP, HbA1C, TSH Initiate preventative DASH diet as reviewed (see below). Restrict sodium < 2000 mg per day Weight loss initial goal of 20-25 lbs Elevate legs when seated, wear compression hose during day Initiate cardiovascular exercise as reviewed (see below). Start walking as tolerated, eventual goal is 30 minutes, five days per week. Report AM and PM blood pressure if consistently > 130/80. Report any new or worsening symptoms. Follow up office visit in 3 months, or as needed. [facility] DASH Diet: After Your Visit Your Care Instructions The DASH diet is an eating plan that can help lower your blood pressure. DASH st ands for Dietary Approaches to Stop Hypertension. Hypertension is high blood pre ssure. The DASH diet focuses on eating foods that are high in calcium, potassium, and m agnesium. These nutrients can lower blood pressure. The foods that are highest i n these nutrients are fruits, vegetables, low-fat dairy products, nuts, seeds, a nd legumes. But taking calcium, potassium, and magnesium supplements instead of eating foods that are high in those nutrients does not have the same effect. The DASH diet also includes whole grains, fish, and poultry. The DASH diet is one of several lifestyle changes your doctor may recommend to l ower your high blood pressure. Your doctor may also want you to decrease the ty unt of sodium in your diet. Lowering sodium while following the DASH diet can lo wer blood pressure even further than just the DASH diet alone. Follow-up care is a bustos part of your treatment and safety. Be sure to make and g o to all appointments, and call your doctor if you are having problems. It's als o a good idea to know your test results and keep a list of the medicines you joe e. How can you care for yourself at home? Following the DASH diet Eat 4 to 5 servings of fruit each day. A serving is 1 medium-sized piece of f ruit, cup chopped or canned fruit, 1/4 cup dried fruit, or 4 ounces ( cup) of fruit juice. Choose fruit more often than fruit juice. Eat 4 to 5 servings of vegetables each day. A serving is 1 cup of lettuce or raw leafy vegetables, cup of chopped or cooked vegetables, or 4 ounces ( cu p) of vegetable juice. Choose vegetables more often than vegetable juice. Get 2 to 3 servings of low-fat and fat-free dairy each day. A serving is 8 ou nces of milk, 1 cup of yogurt, or 1 ounces of cheese. Eat 6 to 8 servings of grains each day. A serving is 1 slice of bread, 1 ounc e of dry cereal, or cup of cooked rice, pasta, or cooked cereal. Try to choos e whole-grain products as much as possible. Limit lean meat, poultry, and fish to 2 servings each day. A serving is 3 oun tom, about the size of a deck of cards. Eat 4 to 5 servings of nuts, seeds, and legumes (cooked dried beans, lentils, and split peas) each week. A serving is 1/3 cup of nuts, 2 tablespoons of seeds, or cup cooked dried beans or peas. Limit fats and oils to 2 to 3 servings each day. A serving is 1 teaspoon of v egetable oil or 2 tablespoons of salad dressing. Limit sweets and added sugars to 5 servings or less a week. A serving is 1 ta blespoon jelly or jam, cup sorbet, or 1 cup of lemonade. Eat less than 2,000 milligrams (mg) of sodium a day. If you have high blood p ressure, diabetes, or chronic kidney disease, if you are -Lithuanian, or if you are older than age 50, try to limit the amount of sodium you eat to less th an 1,500 mg a day. Tips for success Start small. Do not try to make dramatic changes to your diet all at once. Yo u might feel that you are missing out on your favorite foods and then be more li daryn to not follow the plan. Make small changes, and stick with them. Once those changes become habit, add a few more changes. Try some of the following: Make it a goal to eat a fruit or vegetable at every meal and at snacks. This will make it easy to get the recommended amount of fruits and vegetables each da y. Try yogurt topped with fruit and nuts for a snack or healthy dessert. Add lettuce, tomato, cucumber, and onion to sandwiches. Combine a ready-made pizza crust with low-fat mozzarella cheese and lots of v egetable toppings. Try using tomatoes, squash, spinach, broccoli, carrots, cauli flower, and onions. Have a variety of cut-up vegetables with a low-fat dip as an appetizer instea d of chips and dip. Sprinkle sunflower seeds or chopped almonds over salads. Or try adding choppe d walnuts or almonds to cooked vegetables. Try some vegetarian meals using beans and peas. Add garbanzo or kidney beans to salads. Make burritos and tacos with mashed dan beans or black beans. Where can you learn more? Go to www.Softdeskt.Ygle Enter H967 in the search box to learn more about "DASH Diet: After Your Visit." 9667-0246 [employer]. Care instructions adapted under license b y [facility]. This care instruction is for use with your license d healthcare professional. If you have questions about a medical condition or th is instruction, always ask your healthcare professional. M[employer]ie d disclaims any warranty or liability for your use of this information. Content Version: 10.4.755190; Current as of: February 02, 2014 [facility] Learning About Physical Activity The types of physical activity that can help you get fit and stay healthy includ e: Aerobic or "cardio" activities that make your heart beat faster and make you breathe harder, such as brisk walking, riding a bike, or running. Aerobic activi ties strengthen your heart and lungs and build up your endurance. Strength training activities that make your muscles work against, or "resist, " something, such as lifting weights or doing push-ups. These activities help to ne and strengthen your muscles. Stretches that allow you to move your joints and muscles through their full r nirmala of motion. Stretching helps you be more flexible and avoid injury. What are the benefits of physical activity? Being active is one of the best things you can do to get fit and stay healthy. I t helps you to: Feel stronger and have more energy to do all the things you like to do. Feel, think, and sleep better. Reach and stay at a healthy weight. Lose fat and build lean muscle. Lower your risk for serious health problems. Keep your bones, muscles, and joints strong. Being fit lets you do more physical activity. And it lets you work out harder wi thout as much effort. How can you make physical activity part of your life? Get at least 30 minutes of exercise on at least five days of the week. Walking i s a good choice. You don't have to do the same thing every day. Get your heart pumping every day. Any activity that makes your heart beat faster and keeps it at that rate for a while counts. Strengthen your muscles during the week. You don't have to lift heavy weights or grow big, bulky muscles to get stronger. Doing a few simple activities that make your muscles work against, or "resist," something can help you get stronger. Stretch your muscles often. Stretching will help you as you become more active. It can help you stay flexible, loosen tight muscles, and avoid injury. It can al so help improve your balance and posture and can be a great way to relax. Its best to warm your muscles slightly before you stretch them. Walk or do s ome other light aerobic activity for a few minutes, and then start stretching. If you're worried about how more activity might affect your health, have a check up before you start. Follow any special advice your doctor gives you for getting a smart start. Where can you learn more? Go to www.Intelligent Energy.HipGeo.Oyster Enter W332 in the search box to learn more about "Learning About Physical Activi ty." [id number] [employer]. Care instructions adapted under license b y [facility]. This care instruction is for use with your license d healthcare professional. If you have questions about a medical condition or th is instruction, always ask your healthcare professional. Moxie d disclaims any warranty or liability for your use of this information. Content Version: 10.4.304729; Current as of: October 07, 2014 documented in this encounter Progress Notes * Lisa Moe MD - 07/16/2019 9:30 AM CDT Lisa Moe MD, [facility], [facility] [address] [place] [address] [id number] [place] [address] Date: July 16, 2019 Patient Name: Michael Zamora Patient Date of : 1945 Chief Complaint: Chief Complaint Patient presents with Atrial Fibrillation annual visit History: History of Present Illness: Michael Zamora is a 73 y.o. male with hx HTN, DM, chronic kidney disease, aortic valve sclerosis, CAD, A fib, s/p successful DCCV in Nov 2013 and Aug 2017 s/p PVI in 2015 for A flutter on chronic oral anticoagulation and amiodarone, dyslipidemia, TUAN on CPAP, now returns after recurrent A fib symptoms, two month s ago including feeling breathless and jittery, mild nausea, with rapid HR for w hich he increased amiodarone on his own from 200 to 400 mg with resolution of ra pid HB, and symptoms after one month, despite decreasing dose back to 200 mg qd for past two weeks. He denies associated CP, dyspnea, lightheadedness, no sympt oms as he had prior to A fib ablation. He is not physically active due to righ t hip pain associated with DJD, responsive to stem cell injection. PT INR has b een therapeutic 2.4 last week. Reports controlled HTN. Chronic LLE dependent edema, responsive to extra dose of lasix. He was seen by Dr. Ascencio in Sep 2018 for persistent A fib, decided on cardioversion at that time. He reports compli ance with CPAP, recent change in synthroid dose to 175 mcg. Current Medications: Current Outpatient Medications Medication Sig Dispense Refill amiodarone (PACERONE) 200 MG tablet TAKE 1 TABLET BY MOUTH TWICE A DAY (Ryann ent taking differently: TAKE 1 TABLET BY MOUTH QD) 180 Tab 1 amlodipine (NORVASC) 10 MG tablet TAKE 1 TABLET BY MOUTH EVERY DAY 90 Tab 3 Febuxostat (ULORIC OR) Take by mouth daily. finasteride (PROSCAR) 5 MG tablet Take 1 Tab by mouth daily. furosemide (LASIX) 40 MG tablet Take 1 tablet by mouth daily 90 Tab 3 Insulin Aspart (NOVOLOG SC) Inject 10 Units as directed 3 times daily. insulin glargine (LANTUS) 100 UNIT/ML injection Inject 60 Units into the ski n daily. levothyroxine (SYNTHROID) 175 MCG tablet Take 175 mcg by mouth daily. lisinopril (PRINIVIL, ZESTRIL) 40 MG tablet TAKE 1 TABLET BY MOUTH EVERY DAY 90 Tab 3 metoprolol (TOPROL-XL) 50 MG XL tablet Take 1 Tab by mouth daily. 90 Tab 3 [id number]-6-wmwl Ethyl Esters 1 g CAPS TAKE 1 CAPSULE BY MOUTH TWICE A DAY 180 E ach 0 Tamsulosin HCl 0.4 MG CAPS Take 2 Caps by mouth daily. warfarin (COUMADIN) 5 MG tablet Take 5 mg by mouth daily. No current facility-administered medications for this visit. Allergies: Allergies Allergen Reactions Iodine "shivers and cold" Minocin Nausea And Vomiting Past Medical History: Past Medical History: Diagnosis Date Anemia Aortic valve sclerosis Asthma Atrial fibrillation Coronary atherosclerosis Diabetes mellitus Dyspnea on exertion Essential hypertension Hepatic cyst Hypertension Lower extremity edema Mixed hyperlipidemia Obesity (BMI 30-39.9) Renal insufficiency Sleep apnea, obstructive Thyroid cancer Past Surgical History: Past Surgical History: Procedure Laterality Date HX APPENDECTOMY HX HAND SURGERY HX SHOULDER SURGERY HX THYROIDECTOMY Social History: Social History Tobacco Use Smoking status: Former Smoker Smokeless tobacco: Never Used Substance Use Topics Alcohol use: No Family History: Family History Problem Relation Name Age of Onset Coronary Artery Disease Mother Coronary Artery Disease Father Heart Surgery Father Hypertension Father Review of Systems: General: fatigue, leg swelling, dizziness ENT: ringing in ears (tinnitus), decreased hearing, difficulty swallowing (dysph agia) Cardiovascular: shortness of breath on exertion, shortness of breath at night (P ND) GI: constipation Musculoskeletal: back pain, joint pain, joint swelling, stiffness, arthritis, go ut Skin: dryness Endocrine: cold intolerance, diabetes, hypothyroidism Examination: BP 116/60 (BP Location: left arm, Patient Position: Sitting) | Pulse 60 | Ht 5 ' 11" (1.803 m) | Wt 261 lb (118.4 kg) | BMI 36.40 kg/m General appearance alert, cooperative, no distress, appears stated age Head Normocephalic, without obvious abnormality, atraumatic Neck supple, symmetrical, trachea midline, no adenopathy, thyroid: not enlarged, symmetric, no tenderness/mass/nodules, no carotid bruit and no JVD Lungs clear to auscultation bilaterally Chest wall no tenderness Heart regular rate and rhythm, S1, S2 normal, 1/6 systolic murmur, no click, ru b or gallop Abdomen soft, non-tender. Bowel sounds normal. No masses, No organomegaly Extremities extremities normal, atraumatic, no cyanosis, 1+ bilateral ankle/calf non-pitting edema Pulses 2+ and symmetric Skin Skin color, texture, turgor normal. No rashes or lesions Data: Laboratory Testing: No results found for this or any previous visit (from the past 672 hour(s)). Electrocardiogram: Junctional rhythm, rate 81 (probable underlying A fib) Echocardiogram Jun 2018: lower limits of normal LVSF, mild LVH, Grade 3 diastoli c dysfunction, severe LAE, Mild to mod aortic valve calcification, mild to mod T R, RVSP 45-50 mmHg, hepatic cyst Event monitor Jul-Aug 2018: A fib Nuclear stress test April 2017: small fixed inferior defect Impression: Michael Zamora is a 73 y.o. male with a history of A-fib Recurrent A fib, now in junctional rhythm, rate 81, asymptomatic Reviewed with Dr. Grijalva, continue rate control on amiodarone 200 mg qd and meto prolol XL 50 mg qd INR therapeutic on warfarin CHADSVasc score is 4 Congestive heart failure with LV diastolic dysfunction, NYHA class 3 Symptoms have been successfully treated with furosemide which was increased duri ng last visit in Jun 2018 to 40 mg qd Consider follow up nuclear stress testing now that he is stable and has lost 12 lbs in past year. Continue lisinopril 40 mg qd, metolprolol 50 mg qd Lower extremity edema Venous Doppler negative in Jun 2018 Stable LE edema, controlled on lasix LE elevation, compression hose Coronary atherosclerosis High risk of CAD progression Nuclear stress test 2017: fixed inferior defect Order pharmacologic nuclear stress test after evaluate arrhythmia Asymptomatic, but not physically active Obesity (BMI 30-39.9) Preventative lifestyle Benefits of weight loss reviewed See instructions Obstructive apnea CPAP Renal insufficiency Bloodwork ordered Essential hypertension Controlled on lisinopril 40 mg qd, metoprolol XL 50 mg qd, amlodipine 10 mg qd Mixed hyperlipidemia Fasting lipids ordered on rosuvastatin 10 mg qd LDL goal < 70 Plan: see above Lisa Moe MD [facility] [address] [facility] [phone] [place] [address] documented in this encounter Plan of Treatment Date/Time Name Type Priority Associated Diagnoses 07/16/2019 10:31 AM CDT ELECTROCARDIOGRAM ECG Routine Paroxysmal atrial COMPLETE fibrillation 07/16/2019 RHYTHM STRIP CAR ECG Routine Paroxysmal atrial fibrillation Health Maintenance Due Date Last Done Comments COLON CANCER SCREENIN1945 COLONOSCOPY MEDICARE AWV 1945 ANNUAL DIABETIC FOOT EXAM 1963 ANNUAL DIABETIC 1963 RETINOPATHY SCREENING BMI FOLLOW UP PLAN 1963 HEPATITIS C SCREENING 1963 AAA Screen 2010 FALL SCREEN 2010 PNEUMOVAX >=65 (PPSV23) 2010 02/09/2009 PREVNAR >=65 (PCV13) 2010 TETANUS SHOT (ADULT) 02/09/2019 02/09/2009 FLU VACCINE > 6 MONTHS 06/24/2019 09/05/2017 documented as of this encounter Results Not on filedocumented in this encounter Visit Diagnoses Diagnosis Paroxysmal atrial fibrillation - Primary Atrial fibrillation Atrial fibrillation, unspecified type Congestive heart failure with LV diastolic dysfunction, NYHA class 3 Congestive heart failure, unspecified Lower extremity edema Edema Atherosclerosis of [place] coronary artery of [place] heart without angina pectoris Obesity (BMI 30-39.9) Obesity, unspecified Obstructive apnea Obstructive sleep apnea (adult) (pediatric) Renal insufficiency Unspecified disorder of kidney and ureter Essential hypertension Unspecified essential hypertension Mixed hyperlipidemia documented in this encounter Insurance Type Payer Benefit Subscriber ID Effective Phone Address Plan / Dates Group Medicare [employer] MEDICARE xxxxxxxxx 2017-P [address] [id number] [place] [address] documented as of this encounter
[2019-12-10] MEDS ORDERED: LIDOCAINE HCL 2% LOCAL INJ 5 ML SDV VIAL INJ ONE (17:22)
[2019-12-10] MEDS ORDERED: HYDROCODONE/APAP 5MG-325MG TAB ONE (17:22)
[2019-12-10] MEDS ORDERED: LIDOCAINE VISC 2% SOLN 15 ML UDC ONE ×2 (17:23→17:50)
[2019-12-10] MEDS ORDERED: HYDROCODONE/APAP 5MG-325MG TAB PO ONE (18:45)
[2019-12-10] MEDS ORDERED: LIDOCAINE VISC 2% SOLN 15 ML UDC PO ONE (18:45)
--- NOTE | 2019-12-10 18:49 | NUR ---
FALL SOCKS, GOWN, LEG BAG ALL GIVEN AT DC.
== END 2019-12-10 17:45 | disposition home or self-care (01) ==
LOC: FSED 17:03
DX: R33.9 Retention of urine, unspecified (principal); N40.1 Benign prostatic hyperplasia with lower urinary tract symptoms; I10 Essential (primary) hypertension; E11.9 Type 2 diabetes mellitus without complications; I50.9 Heart failure, unspecified; I25.10 Atherosclerotic heart disease of native coronary artery without angina pectoris; Z85.850 Personal history of malignant neoplasm of thyroid
CPT/HCPCS: 51702; 81003; 99283; J2001; 51700

== ENCOUNTER → 2021-02-01 | Outpatient (CLI) | payer MEDICARE ==
[~2021-02-01] MED LIST changes: +CEFTRIAXONE SOD 1 GM VIAL ONE; +FENTANYL CITRATE/PF 100MCG/2 ML INJ ONE; +IOPAMIDOL 300MG/ML 100 ML INFUS..BTL IV ONE; +IRR ONE; +LIDOCAINE HCL 1% LOCAL INJ 20 ML VIAL ONE; +MIDAZOLAM HCL 2 MG/2 ML VIAL ONE; +SODIUM CHLORIDE 0.9% 250ML 250 ML ONE; +SODIUM CHLORIDE 0.9% 500ML 500 ML ONE; +SODIUM CHLORIDE 0.9% ONE
[2021-02-01 11:29] LABS: HEMOGLOBIN 9.8 g/dL (14.0-18.0)
[2021-02-01 11:41] LABS: INR 0.99; PROTHROMBIN TIME 13.7 seconds (11.9-14.5)
[2021-02-01 11:42] LABS: PARTIAL THROMBOPLASTIN TIME 37.3 seconds (23.8-35.5)
== END ==
LOC: US 11:01
PROVIDERS: ATTEND Urology
DX: Z01.812 Encounter for preprocedural laboratory examination (principal); Z20.822 Contact with and (suspected) exposure to COVID-19; R33.8 Other retention of urine
CPT/HCPCS: 36415; 51102; 76942; 85014; 85049; 85610; 85730; C1769; J0696; J2001; J2250; J3010; J7040; J7050; Q9967; U0002

== ENCOUNTER → 2021-03-26 | Outpatient (CLI) | payer MEDICARE ==
[~2021-03-26] MED LIST changes: -CEFTRIAXONE SOD 1 GM VIAL ONE; -IRR ONE; -LIDOCAINE HCL 1% LOCAL INJ 20 ML VIAL ONE; -SODIUM CHLORIDE 0.9% ONE
[2021-03-26 11:32] LABS: INR 1.02
[2021-03-26 11:33] LABS: PARTIAL THROMBOPLASTIN TIME 40.3 seconds (23.8-35.5)
== END ==
LOC: DX 10:37
PROVIDERS: ATTEND Urology
DX: R33.9 Retention of urine, unspecified (principal)
CPT/HCPCS: 36415; 51102; 85014; 85049; 85610; 85730; J2250; J3010; J7040; J7050; Q9967; U0002; 99152; 99153

== ENCOUNTER 2021-06-28 16:13 | Emergency (ER) | payer MEDICARE ==
[~2021-06-28] VITALS: Ht 180.3 cm; Wt 117.9 kg
[~2021-06-28 16:13] MED LIST changes: -FENTANYL CITRATE/PF 100MCG/2 ML INJ ONE; -IOPAMIDOL 300MG/ML 100 ML INFUS..BTL IV ONE; -MIDAZOLAM HCL 2 MG/2 ML VIAL ONE; -SODIUM CHLORIDE 0.9% 250ML 250 ML ONE; -SODIUM CHLORIDE 0.9% 500ML 500 ML ONE
[2021-06-28] MEDS ORDERED: CIPRO500 MG PO (16:59)
== END 2021-06-28 17:09 | disposition home or self-care (01) ==
LOC: FSED 16:20
DX: R39.89 Other symptoms and signs involving the genitourinary system (principal); N30.01 Acute cystitis with hematuria; I10 Essential (primary) hypertension; E11.9 Type 2 diabetes mellitus without complications; I50.9 Heart failure, unspecified; I48.91 Unspecified atrial fibrillation; I25.10 Atherosclerotic heart disease of native coronary artery without angina pectoris; Z85.850 Personal history of malignant neoplasm of thyroid
CPT/HCPCS: 81003; 99283

== ENCOUNTER 2021-09-06 19:42 | Emergency (ER) | payer MEDICARE ==
[~2021-09-06] VITALS: Ht 180.3 cm; Wt 117.9 kg
[~2021-09-06 19:42] MED LIST changes: +CIPRO500 MG PO
[2021-09-06] MEDS ORDERED: GENTAMICIN SULFATE 40 MG/ML 2 ML VIAL ONE (20:39)
[2021-09-06] MEDS ORDERED: CEFDINIR300 MG PO (20:52)
[2021-09-06] MEDS ORDERED: LEVSIN-SL0.125 MG SL (20:54)
[2021-09-06] MEDS ORDERED: CEFTRIAXONE 1 GM VIAL ONE (20:57)
[2021-09-06] MEDS ORDERED: CEFTRIAXONE 1 GM VIAL IM ONE (21:00)
[2021-09-09] MEDS ORDERED: BACTRIM DS TAB1 EACH PO (11:53)
== END 2021-09-06 21:45 | disposition home or self-care (01) ==
LOC: FSED 20:07
DX: N39.0 Urinary tract infection, site not specified (principal); N32.89 Other specified disorders of bladder; N31.9 Neuromuscular dysfunction of bladder, unspecified; E11.9 Type 2 diabetes mellitus without complications; D68.9 Coagulation defect, unspecified; I50.9 Heart failure, unspecified; I48.91 Unspecified atrial fibrillation; I25.10 Atherosclerotic heart disease of native coronary artery without angina pectoris; Z85.850 Personal history of malignant neoplasm of thyroid
CPT/HCPCS: 81003; 87086; 87186; 99283; J0696; J1580

== ENCOUNTER 2021-11-30 10:29 | Emergency (ER) | payer MEDICARE ==
[~2021-11-30] VITALS: Ht 180.3 cm; Wt 108.0 kg
[~2021-11-30 10:29] MED LIST changes: +BACTRIM DS TAB1 EACH PO; +CEFDINIR300 MG PO; +LEVSIN-SL0.125 MG SL
[2021-11-30] MEDS ORDERED: ONDANSETRON HCL 4 MG ORAL DISINTEGRATING TAB PO ONE (11:00)
[2021-11-30] MEDS ORDERED: ACETAMINOPHEN 325 MG TAB PO ONE (11:00)
[2021-11-30] MEDS ORDERED: CEFTRIAXONE 1 GM in SODIUM CHLORIDE 0.9% 50ML 50 ML IV ONE (11:00)
[2021-11-30] MEDS ORDERED: KETOROLAC TROMETHAMINE 30 MG/ML VIAL IV ONE (11:00)
[2021-11-30] MEDS ORDERED: PROBIOTIC & AC1 EACH PO (11:14)
[2021-11-30] MEDS ORDERED: IBUPROFEN IB200 MG PO (11:14)
[2021-11-30] MEDS ORDERED: ACETAMINOPHEN-1 EAC4 PO (11:14)
[2021-11-30] MEDS ORDERED: BACTRIM 400-801 EACH PO (11:14)
[2021-11-30] MEDS ORDERED: CEFDINIR300 MG PO (11:14)
[2021-11-30] MEDS ORDERED: PYRIDIUM100 MG PO (11:20)
[2021-11-30] MEDS ORDERED: KETOROLAC TROMETHAMINE 30 MG/ML VIAL ONE (11:26)
[2021-11-30] MEDS ORDERED: CEFTRIAXONE 1 GM VIAL ONE (11:26)
[2021-11-30] MEDS ORDERED: ACETAMINOPHEN 325 MG TAB ONE (11:26)
[2021-11-30] MEDS ORDERED: SODIUM CHLORIDE 0.9% 50ML 50 ML ONE (11:26)
[2021-11-30] MEDS ORDERED: METHENAMINE1 GM (21:49)
[2021-11-30] MEDS ORDERED: LANTUS 3ML100 UNITS/ (21:49)
[2021-11-30] MEDS ORDERED: PROTONIX20 MG PO (21:49)
[2021-11-30] MEDS ORDERED: CRESTOR10 MG PO (21:49)
[2021-11-30] MEDS ORDERED: FINASTERIDE5 MG PO (21:49)
[2021-11-30] MEDS ORDERED: NOVOLOG100 UNIT/1 SC (21:49)
[2021-11-30] MEDS ORDERED: OMEGA 3 1,0001 EACH PO (21:49)
[2021-11-30] MEDS ORDERED: HYOSCYAMINE0.125 M1 (21:49)
[2021-11-30] MEDS ORDERED: FUROSEMIDE40 MG PO (21:49)
[2021-11-30] MEDS ORDERED: ELIQUIS2.5 MG PO (21:49)
[2021-11-30] MEDS ORDERED: LINZESS72 MCG (21:49)
[2021-11-30] MEDS ORDERED: UNITHROID150 MCG (21:49)
[2021-11-30] MEDS ORDERED: OXYBUTYNIN CHLOR5 MG PO (21:49)
[2021-11-30] MEDS ORDERED: CALCET TABLET1 EACH PO (21:49)
[2021-11-30] MEDS ORDERED: AMLODIPINE BESY10 MG PO (21:49)
[2021-11-30] MEDS ORDERED: LISINOPRIL10 MG PO (21:49)
[2021-11-30] MEDS ORDERED: FLOMAX0.4 MG PO (21:49)
[2021-11-30] MEDS ORDERED: MIRALAX17 GM PO (21:49)
[2021-11-30] MEDS ORDERED: METOPROLOL TART50 MG PO (21:49)
[2021-11-30] MEDS ORDERED: AZO1 EACH (21:49)
[2021-11-30] MEDS ORDERED: CENTRUM ADULTS1 EACH PO (21:49)
== END 2021-11-30 12:22 | disposition home or self-care (01) ==
LOC: FSED 11:01
DX: N30.01 Acute cystitis with hematuria (principal); N31.9 Neuromuscular dysfunction of bladder, unspecified; N32.89 Other specified disorders of bladder; I10 Essential (primary) hypertension; E11.9 Type 2 diabetes mellitus without complications; E78.5 Hyperlipidemia, unspecified; I50.9 Heart failure, unspecified; I25.10 Atherosclerotic heart disease of native coronary artery without angina pectoris; K21.9 Gastro-esophageal reflux disease without esophagitis; Z85.850 Personal history of malignant neoplasm of thyroid
CPT/HCPCS: 81003; 87086; 87186; 96374; 99283; J0696; J1885

== ENCOUNTER 2023-01-07 05:38 | Emergency (ER) | payer MEDICARE ==
[~2023-01-07] VITALS: Ht 180.3 cm; Wt 106.6 kg
[~2023-01-07 05:38] MED LIST changes: +ACETAMINOPHEN-1 EAC4 PO; +AMLODIPINE BESY10 MG PO; +AZO1 EACH; +BACTRIM 400-801 EACH PO; +CALCET TABLET1 EACH PO; +CENTRUM ADULTS1 EACH PO; +CRESTOR10 MG PO; +ELIQUIS2.5 MG PO; +FINASTERIDE5 MG PO; +FLOMAX0.4 MG PO; +FUROSEMIDE40 MG PO; +HYOSCYAMINE0.125 M1; +IBUPROFEN IB200 MG PO; +LANTUS 3ML100 UNITS/; +LINZESS72 MCG; +LISINOPRIL10 MG PO; +METHENAMINE1 GM; +METOPROLOL TART50 MG PO; +MIRALAX17 GM PO; +NOVOLOG100 UNIT/1 SC; +OMEGA 3 1,0001 EACH PO; +OXYBUTYNIN CHLOR5 MG PO; +PROBIOTIC & AC1 EACH PO; +PROTONIX20 MG PO; +PYRIDIUM100 MG PO; +UNITHROID150 MCG
[2023-01-07 06:40] LABS: BASOPHILS # (AUTO) 0.1 (0.0-0.1); BASOPHILS % 0.4 % (0.0-1.0); EOSINOPHILS # (AUTO) 0.3 (0.0-0.4); EOSINOPHILS % 2.3 % (0.0-6.0); HEMATOCRIT 32.8 % (38.2-49.6); HEMOGLOBIN 9.6 g/dL (14.0-18.0); LYMPHOCYTES # (AUTO) 0.6 (1.0-3.2); LYMPHOCYTES % 4.7 % (18.0-39.1); MEAN CORPUSCULAR HEMOGLOBIN 22.7 pg (28-32); MEAN CORPUSCULAR HGB CONC 29.3 g/dL (31-35); MEAN CORPUSCULAR VOLUME 77.7 fL (81-99); MONOCYTES # (AUTO) 0.9 (0.2-0.8); MONOCYTES % 6.7 % (4.4-11.3); NEUTROPHILS # (AUTO) 11.1 (2.1-6.9); NEUTROPHILS % 85.4 % (38.7-80.0); PLATELET COUNT 199 x10e3/uL (140-360); RED BLOOD COUNT 4.22 x10e6/uL (4.3-5.7); RED CELL DISTRIBUTION WIDTH 17.7 % (11.7-14.4)
[2023-01-07 07:04] LABS: ALBUMIN 3.6 g/dL (3.5-5.0); ALBUMIN/GLOBULIN RATIO 0.8 (0.8-2.0); ANION GAP 17.7 mmol/L (8-16); CALCIUM 8.4 mg/dL (8.4-10.2); CREATININE, SERUM 1.76 mg/dL (0.72-1.25); POTASSIUM 3.7 mmol/L (3.5-5.1)
== END 2023-01-07 08:00 | disposition home or self-care (01) ==
LOC: ER 05:47
DX: I50.9 Heart failure, unspecified (principal); E11.65 Type 2 diabetes mellitus with hyperglycemia; I10 Essential (primary) hypertension; I48.91 Unspecified atrial fibrillation; E03.9 Hypothyroidism, unspecified; K21.9 Gastro-esophageal reflux disease without esophagitis; E78.5 Hyperlipidemia, unspecified; Z20.822 Contact with and (suspected) exposure to COVID-19; R94.31 Abnormal electrocardiogram [ECG] [EKG]; Z85.850 Personal history of malignant neoplasm of thyroid
CPT/HCPCS: 36415; 71045; 80053; 83880; 84484; 85025; 93005; 99284; U0002

== ENCOUNTER 2024-12-29 14:25 | Inpatient (IN) | payer MEDICARE ==
[~2024-12-29] VITALS: Ht 180.3 cm; Wt 106.6 kg
[~2024-12-29 14:25] MED LIST changes: -UNITHROID150 MCG; +UNITHROID150 MCG PO
[2024-12-29 14:40] VITALS: TEMP 98.9
[2024-12-29] MEDS ORDERED: SODIUM CHLORIDE FLUSH 10 ML SYR IV PRN (15:15)
[2024-12-29 15:24] LABS: BASOPHILS # (AUTO) 0.1 (0.0-0.1); BASOPHILS % 0.4 % (0.0-1.0); EOSINOPHILS # (AUTO) 0.2 (0.0-0.4); EOSINOPHILS % 1.1 % (0.0-6.0); HEMATOCRIT 43.1 % (38.2-49.6); HEMOGLOBIN 13.6 g/dL (14.0-18.0); LYMPHOCYTES # (AUTO) 0.4 (1.0-3.2); LYMPHOCYTES % 2.7 % (18.0-39.1); MEAN CORPUSCULAR HEMOGLOBIN 29.7 pg (28-32); MEAN CORPUSCULAR HGB CONC 31.6 g/dL (31-35); MEAN CORPUSCULAR VOLUME 94.1 fL (81-99); MONOCYTES # (AUTO) 0.7 (0.2-0.8); MONOCYTES % 4.7 % (4.4-11.3); NEUTROPHILS # (AUTO) 13.9 (2.1-6.9); NEUTROPHILS % 90.5 % (38.7-80.0); PLATELET COUNT 163 x10e3/uL (140-360); RED BLOOD COUNT 4.58 x10e6/uL (4.3-5.7); RED CELL DISTRIBUTION WIDTH 14.7 % (11.7-14.4); WHITE BLOOD COUNT 15.39 x10e3/uL (4.8-10.8)
[2024-12-29 15:35] LABS: ALBUMIN 3.2 g/dL (3.5-5.0); ALBUMIN/GLOBULIN RATIO 0.7 (0.8-2.0); ANION GAP 14.8 mmol/L (8-16); BILIRUBIN,TOTAL 0.6 mg/dL (0.2-1.2); BLOOD UREA NITROGEN 22 mg/dL (7-26); BUN/CREATININE RATIO 16 (6-25); CALCIUM 8.1 mg/dL (8.4-10.2); CARBON DIOXIDE 23 mmol/L (22-29); CHLORIDE 102 mmol/L (98-107); CREATININE, SERUM 1.37 mg/dL (0.72-1.25); EST GLOMERULAR FILTRATION RATE 52 ML/MIN (>=60); GLUCOSE 134 mg/dL (74-118); POTASSIUM 3.8 mmol/L (3.5-5.1); SODIUM 136 mmol/L (136-145); TOTAL PROTEIN 7.7 g/dL (6.5-8.1)
[2024-12-29 15:36] LABS: ALKALINE PHOSPHATASE 94 IU/L (40-150)
[2024-12-29 15:40] LABS: ALANINE AMINOTRANSFERASE < 6 IU/L (0-55)
[2024-12-29 16:00] LABS: TROPONIN I 0.024 ng/mL (0-0.300)
[2024-12-29 16:21] LABS: BILIRUBIN,URINE NEGATIVE (NEGATIVE); CLARITY,URINE CLOUDY (CLEAR); COLOR,URINE YELLOW (YELLOW); GLUCOSE, URINE NEGATIVE (NEGATIVE); KETONES,URINE NEGATIVE (NEGATIVE); LEUKOCYTE ESTERASE ,URINE TRACE (NEGATIVE); NITRITE,URINE NEGATIVE (NEGATIVE); PH,URINE 7 (5 - 7); PROTEIN,URINE DIPSTICK >=300 (NEGATIVE); URINE UROBILINOGEN 0.2 mg/dL (0.2 - 1)
[2024-12-29 16:24] LABS: BACTERIA,URINE MANY /HPF; EPITHELIAL CELLS,URINE FEW /LPF; RBC,URINE 21-50 /HPF (0-5); WBC,URINE (MAN) 21-50 /HPF (0-5)
[2024-12-29] MEDS: ONDANSETRON HCL INJ 2MG/ML 2ML 2 MG/ML VIAL IV STA (16:28)
[2024-12-29 16:32] LABS: CORONAVIRUS COVID-19 AG NEGATIVE (NEGATIVE); INFLUENZA A AG NEGATIVE (NEGATIVE); INFLUENZA B AG NEGATIVE (NEGATIVE)
[2024-12-29] MEDS ORDERED: HYDROCORTISONE SOD SUCCINATE 100 MG VIAL IV SCH (17:00)
[2024-12-29] MEDS ORDERED: SODIUM CHLORIDE 0.9% IV SCH (18:00)
[2024-12-29] MEDS ORDERED: HYDROCORTISONE SOD SUCCINATE IV SCH (18:00)
[2024-12-29] MEDS ORDERED: ONDANSETRON HCL INJ 2MG/ML 2ML 2 MG/ML VIAL IV PRN (18:15)
[2024-12-29] MEDS ORDERED: SODIUM CHLORIDE FLUSH 10 ML SYR INJ PRN (18:15)
[2024-12-29] MEDS: SODIUM CHLORIDE 0.9% IV SCH (18:41)
[2024-12-29] MEDS: HYDROCORTISONE SOD SUCCINATE IV SCH (18:41)
[2024-12-29 19:15] VITALS: PULSE 71; RESP 20
[2024-12-29] MEDS: FUROSEMIDE INJ 10 MG/ML 4 ML VIAL IV ONE (19:55)
[2024-12-29 21:00] VITALS: BP 138/62; PULSE 72; RESP 22; TEMP 98.3; O2SAT 93
[2024-12-29] MEDS: DIPHENHYDRAMINE HCL INJ 50 MG/ML VIAL IV ONE (22:40)
[2024-12-29] MEDS ORDERED: IOPAMIDOL 370 MG/ML 100 ML INFUS..BTL INJ ONE (23:20)
[2024-12-30] VITALS (8 sets, daily range): BP systolic 96–138; BP diastolic 44–91; PULSE 59–72; RESP 17–22; TEMP 97.8–98.3; O2SAT 93–100
[2024-12-30 06:46] LABS: BASOPHILS # (AUTO) 0.1 (0.0-0.1); BASOPHILS % 0.3 % (0.0-1.0); HEMATOCRIT 39.4 % (38.2-49.6); HEMOGLOBIN 12.2 g/dL (14.0-18.0); LYMPHOCYTES # (AUTO) 0.4 (1.0-3.2); LYMPHOCYTES % 2.1 % (18.0-39.1); MEAN CORPUSCULAR HEMOGLOBIN 29.4 pg (28-32); MEAN CORPUSCULAR VOLUME 94.9 fL (81-99); MONOCYTES # (AUTO) 1.3 (0.2-0.8); NEUTROPHILS # (AUTO) 16.7 (2.1-6.9); NEUTROPHILS % 88.4 % (38.7-80.0); PLATELET COUNT 140 x10e3/uL (140-360); RED BLOOD COUNT 4.15 x10e6/uL (4.3-5.7); WHITE BLOOD COUNT 18.92 x10e3/uL (4.8-10.8)
[2024-12-30 07:06] LABS: ALBUMIN 2.7 g/dL (3.5-5.0); ALBUMIN/GLOBULIN RATIO 0.7 (0.8-2.0); ANION GAP 18.6 mmol/L (8-16); CALCIUM 8.2 mg/dL (8.4-10.2); CREATININE, SERUM 1.56 mg/dL (0.72-1.25); POTASSIUM 3.6 mmol/L (3.5-5.1); TOTAL PROTEIN 6.6 g/dL (6.5-8.1)
[2024-12-30] MEDS ORDERED: METOPROLOL TARTRATE INJ 1 MG/ML VIAL IV PRN (07:15)
[2024-12-30] MEDS ORDERED: DOCUSATE SODIUM 100 MG CAP PO PRN (07:15)
[2024-12-30] MEDS ORDERED: MELATONIN 3 MG TAB PO PRN (07:15)
[2024-12-30] MEDS ORDERED: DEXTROSE 50% SYRINGE 50 ML IV PRN (07:15)
[2024-12-30] MEDS ORDERED: SIMETHICONE 80 MG CHEW PO PRN (07:15)
[2024-12-30] MEDS ORDERED: ALBUTEROL/IPRATROPIUM 3 ML NEB NEB PRN (07:15)
[2024-12-30 07:36] LABS: CHOL/HDL RATIO 4.2 (3.9-4.7)
[2024-12-30] MEDS: AMLODIPINE BESYLATE 10 MG TAB PO SCH (09:00)
[2024-12-30] MEDS: FINASTERIDE 5 MG TAB PO SCH (09:00)
[2024-12-30] MEDS ORDERED: SIMVASTATIN 40 MG TAB PO SCH (09:00)
[2024-12-30] MEDS: TAMSULOSIN HCL 0.4 MG CAP PO SCH (09:00)
[2024-12-30] MEDS: CRESTOR 10MG PO SCH (09:32)
[2024-12-30] MEDS: LEVOTHYROXINE SODIUM 75 MCG TAB PO SCH (09:32)
[2024-12-30] MEDS: PANTOPRAZOLE SOD 40 MG TABEC PO SCH (09:32)
[2024-12-30] MEDS: ENOXAPARIN SODIUM INJ 100 MG/ML SYR SC SCH (09:33)
[2024-12-30] MEDS: INSULIN REGULAR, HUMAN 100 UNIT/1 ML SQ SCH (09:37)
[2024-12-30] MEDS: ACETAMINOPHEN 325 MG TAB PO PRN (16:13)
[2024-12-31] VITALS (11 sets, daily range): BP systolic 106–149; BP diastolic 58–95; PULSE 63–82; RESP 18–20; TEMP 97.7–98.6; O2SAT 94–100
[2024-12-31 06:41] LABS: BASOPHILS # (AUTO) 0.1 (0.0-0.1); BASOPHILS % 0.6 % (0.0-1.0); EOSINOPHILS # (AUTO) 0.2 (0.0-0.4); EOSINOPHILS % 2.4 % (0.0-6.0); HEMOGLOBIN 11.3 g/dL (14.0-18.0); LYMPHOCYTES # (AUTO) 0.4 (1.0-3.2); LYMPHOCYTES % 4.1 % (18.0-39.1); MEAN CORPUSCULAR HEMOGLOBIN 29.4 pg (28-32); MEAN CORPUSCULAR HGB CONC 31.4 g/dL (31-35); MEAN CORPUSCULAR VOLUME 93.8 fL (81-99); MONOCYTES # (AUTO) 0.5 (0.2-0.8); MONOCYTES % 5.3 % (4.4-11.3); NEUTROPHILS # (AUTO) 8.9 (2.1-6.9); PLATELET COUNT 129 x10e3/uL (140-360); RED BLOOD COUNT 3.84 x10e6/uL (4.3-5.7); RED CELL DISTRIBUTION WIDTH 14.8 % (11.7-14.4); WHITE BLOOD COUNT 10.21 x10e3/uL (4.8-10.8)
[2024-12-31 07:07] LABS: ANION GAP 14.5 mmol/L (8-16); CREATININE, SERUM 2.13 mg/dL (0.72-1.25); POTASSIUM 3.5 mmol/L (3.5-5.1)
[2025-01-01 00:22] VITALS: BP 145/58; PULSE 73; RESP 18; TEMP 98.7; O2SAT 99
[2025-01-01 04:22] VITALS: BP 153/64; PULSE 68; RESP 17; TEMP 98.2; O2SAT 99
[2025-01-01 06:11] VITALS: PULSE 75; RESP 20; O2SAT 93
[2025-01-01] MEDS ORDERED: ENTRESTO 24 MG1 EACH PO (07:55)
[2025-01-01] MEDS ORDERED: AMIODARONE HCL200 MG PO (07:55)
[2025-01-01] MEDS ORDERED: CARVEDILOL6.25 MG PO (07:55)
[2025-01-01] MEDS ORDERED: LACTULOSE10 GM/151 PO (07:55)
[2025-01-01] MEDS ORDERED: METHENAMINE HIPP1 GM PO (07:58)
[2025-01-01 08:00] VITALS: BP 163/71; PULSE 67; RESP 17; TEMP 97.7; O2SAT 98
[2025-01-01 08:32] LABS: BASOPHILS % 0.6 % (0.0-1.0); EOSINOPHILS # (AUTO) 0.2 (0.0-0.4); EOSINOPHILS % 2.8 % (0.0-6.0); HEMATOCRIT 36.9 % (38.2-49.6); HEMOGLOBIN 11.5 g/dL (14.0-18.0); LYMPHOCYTES # (AUTO) 0.4 (1.0-3.2); LYMPHOCYTES % 7.5 % (18.0-39.1); MEAN CORPUSCULAR HEMOGLOBIN 29.4 pg (28-32); MEAN CORPUSCULAR HGB CONC 31.2 g/dL (31-35); MEAN CORPUSCULAR VOLUME 94.4 fL (81-99); MONOCYTES # (AUTO) 0.4 (0.2-0.8); MONOCYTES % 7.9 % (4.4-11.3); NEUTROPHILS # (AUTO) 4.4 (2.1-6.9); NEUTROPHILS % 80.8 % (38.7-80.0); PLATELET COUNT 136 x10e3/uL (140-360); RED BLOOD COUNT 3.91 x10e6/uL (4.3-5.7); RED CELL DISTRIBUTION WIDTH 14.8 % (11.7-14.4); WHITE BLOOD COUNT 5.45 x10e3/uL (4.8-10.8)
[2025-01-01 08:55] LABS: ANION GAP 15.2 mmol/L (8-16); CALCIUM 8.1 mg/dL (8.4-10.2); CREATININE, SERUM 1.59 mg/dL (0.72-1.25); POTASSIUM 4.2 mmol/L (3.5-5.1)
[2025-01-01 09:00] VITALS: BP 163/71; PULSE 67; RESP 17; TEMP 97.7; O2SAT 98
[2025-01-01] MEDS ORDERED: NON-FORMULARY MEDICATION (Methenamine Hippurate 1 TAB) PO SCH (09:00)
[2025-01-01] MEDS: SACUBITRIL/VALSARTAN 24MG/26MG 1 EA TAB PO SCH (09:44)
[2025-01-01] MEDS: CARVEDILOL 3.125 MG TAB PO SCH (09:45)
[2025-01-01] MEDS: METOPROLOL TARTRATE 50 MG TAB PO SCH (09:46)
[2025-01-01] MEDS: AMIODARONE HCL 200 MG TAB PO SCH (09:46)
[2025-01-01] MEDS: LACTULOSE SYRUP 20 GM/30 ML UDC PO PRN (09:56)
[2025-01-01] MEDS ORDERED: METOPROLOL TART50 MG PO (10:56)
[2025-01-01] MEDS ORDERED: LASIX20 MG PO (11:00)
[2025-01-01] MEDS: METOPROLOL TARTRATE 50 MG TAB PO ONE (11:20)
[2025-01-01 12:00] VITALS: BP 158/57; PULSE 78; RESP 19; TEMP 97.8; O2SAT 100
[2025-01-01] MEDS ORDERED: METOPROLOL TARTRATE 50 MG TAB PO SCH (17:00)
== END 2025-01-01 12:45 | disposition home or self-care (01) | DRG 291 ==
LOC: ER 14:33 → ERHOLD 18:16 → MED/SURG3 20:20 → OBSVTOIN 12-30 07:19
PROVIDERS: ADMIT Internal Medicine; ATTEND Internal Medicine
DX: I13.0 Hypertensive heart and chronic kidney disease with heart failure and stage 1 through stage 4 chronic kidney disease, or unspecified chronic kidney disease (principal); I50.33 Acute on chronic diastolic (congestive) heart failure; T83.518A Infection and inflammatory reaction due to other urinary catheter, initial encounter; C64.2 Malignant neoplasm of left kidney, except renal pelvis; C77.2 Secondary and unspecified malignant neoplasm of intra-abdominal lymph nodes; N17.9 Acute kidney failure, unspecified; I48.20 Chronic atrial fibrillation, unspecified; N39.0 Urinary tract infection, site not specified; E11.22 Type 2 diabetes mellitus with diabetic chronic kidney disease; N18.30 Chronic kidney disease, stage 3 unspecified; D63.1 Anemia in chronic kidney disease; N43.3 Hydrocele, unspecified; R01.1 Cardiac murmur, unspecified; E89.0 Postprocedural hypothyroidism; Z11.52 Encounter for screening for COVID-19; N40.0 Benign prostatic hyperplasia without lower urinary tract symptoms; K80.20 Calculus of gallbladder without cholecystitis without obstruction; I25.10 Atherosclerotic heart disease of native coronary artery without angina pectoris; N31.9 Neuromuscular dysfunction of bladder, unspecified; M19.90 Unspecified osteoarthritis, unspecified site; K21.9 Gastro-esophageal reflux disease without esophagitis; R31.29 Other microscopic hematuria; E78.5 Hyperlipidemia, unspecified; E66.9 Obesity, unspecified; Z68.32 Body mass index [BMI] 32.0-32.9, adult; Z79.01 Long term (current) use of anticoagulants; N43.42 Spermatocele of epididymis, multiple; K40.20 Bilateral inguinal hernia, without obstruction or gangrene, not specified as recurrent; N35.919 Unspecified urethral stricture, male, unspecified site; N50.811 Right testicular pain; N50.812 Left testicular pain; Z79.4 Long term (current) use of insulin; Z79.890 Hormone replacement therapy; Z85.850 Personal history of malignant neoplasm of thyroid; Z90.49 Acquired absence of other specified parts of digestive tract; Z91.041 Radiographic dye allergy status; Z88.6 Allergy status to analgesic agent; Z88.8 Allergy status to other drugs, medicaments and biological substances
CPT/HCPCS: 36415; 71045; 71260; 74177; 76770; 76870; 80048; 80053; 80061; 81001; 82948; 83036; 83880; 84484; 85025; 85379; 93005; 93306; 93976; 94760; 94799; 96372; 99252; 99285; G0378; J0696; J1200; J1650; J1720; J1940; J2405; J7050; Q9967

== ENCOUNTER 2025-01-21 11:12 | Emergency (ER) | payer MEDICARE ==
[~2025-01-21] VITALS: Ht 180.3 cm; Wt 106.6 kg
[~2025-01-21 11:12] MED LIST changes: +AMIODARONE HCL200 MG PO; +CARVEDILOL6.25 MG PO; +ENTRESTO 24 MG1 EACH PO; +LACTULOSE10 GM/151 PO; +LASIX20 MG PO; +METHENAMINE HIPP1 GM PO
[2025-01-21 11:21] LABS: BASOPHILS # (AUTO) 0.1 (0.0-0.1); BASOPHILS % 0.9 % (0.0-1.0); EOSINOPHILS # (AUTO) 0.3 (0.0-0.4); EOSINOPHILS % 5.9 % (0.0-6.0); HEMATOCRIT 40.3 % (38.2-49.6); HEMOGLOBIN 12.6 g/dL (14.0-18.0); LYMPHOCYTES # (AUTO) 0.5 (1.0-3.2); LYMPHOCYTES % 9.2 % (18.0-39.1); MEAN CORPUSCULAR HEMOGLOBIN 28.9 pg (28-32); MEAN CORPUSCULAR HGB CONC 31.3 g/dL (31-35); MEAN CORPUSCULAR VOLUME 92.4 fL (81-99); MONOCYTES # (AUTO) 0.3 (0.2-0.8); MONOCYTES % 5.8 % (4.4-11.3); NEUTROPHILS # (AUTO) 4.5 (2.1-6.9); PLATELET COUNT 155 x10e3/uL (140-360); RED BLOOD COUNT 4.36 x10e6/uL (4.3-5.7); WHITE BLOOD COUNT 5.73 x10e3/uL (4.8-10.8)
[2025-01-21 11:22] VITALS: PULSE 64; RESP 19; TEMP 97.5; O2SAT 100
[2025-01-21 11:52] LABS: CLARITY,URINE CLOUDY (CLEAR); COLOR,URINE YELLOW (YELLOW); GLUCOSE, URINE NEGATIVE (NEGATIVE); KETONES,URINE NEGATIVE (NEGATIVE); LEUKOCYTE ESTERASE ,URINE TRACE (NEGATIVE); NITRITE,URINE POSITIVE (NEGATIVE); PH,URINE 6.5 (5 - 7); PROTEIN,URINE DIPSTICK >=300 (NEGATIVE); URINE UROBILINOGEN 0.2 mg/dL (0.2 - 1)
[2025-01-21 11:53] LABS: BACTERIA,URINE MODERATE /HPF; BILIRUBIN,URINE NEGATIVE (NEGATIVE); EPITHELIAL CELLS,URINE FEW /LPF; RBC,URINE >50 /HPF (0-5); WBC,URINE (MAN) 0-5 /HPF (0-5)
[2025-01-21 11:54] LABS: ALBUMIN 3.1 g/dL (3.5-5.0); ALBUMIN/GLOBULIN RATIO 0.8 (0.8-2.0); ANION GAP 13.9 mmol/L (8-16); BILIRUBIN,TOTAL 0.8 mg/dL (0.2-1.2); CALCIUM 8.3 mg/dL (8.4-10.2); CREATININE, SERUM 1.27 mg/dL (0.72-1.25); POTASSIUM 3.9 mmol/L (3.5-5.1); TOTAL PROTEIN 7.2 g/dL (6.5-8.1)
[2025-01-21] MEDS ORDERED: CEFDINIR300 MG PO (12:17)
== END 2025-01-21 12:25 | disposition home or self-care (01) ==
LOC: ER 11:15
DX: R10.30 Lower abdominal pain, unspecified (principal); N39.0 Urinary tract infection, site not specified; E11.65 Type 2 diabetes mellitus with hyperglycemia; I10 Essential (primary) hypertension; E78.5 Hyperlipidemia, unspecified; I50.9 Heart failure, unspecified; I48.91 Unspecified atrial fibrillation; E03.9 Hypothyroidism, unspecified; I25.10 Atherosclerotic heart disease of native coronary artery without angina pectoris; K21.9 Gastro-esophageal reflux disease without esophagitis; Z85.850 Personal history of malignant neoplasm of thyroid; Z85.53 Personal history of malignant neoplasm of renal pelvis
CPT/HCPCS: 36415; 74176; 80053; 81001; 85025; 87086; 87186; 99283

== ENCOUNTER 2025-02-01 10:33 | Inpatient (IN) | payer MEDICARE ==
[~2025-02-01] VITALS: Ht 180.3 cm; Wt 95.3 kg
[2025-02-01] VITALS (8 sets, daily range): BP systolic 101–167; BP diastolic 63–66; PULSE 63–88; RESP 17–23; TEMP 97.7–98.9; O2SAT 96–100
[2025-02-01 11:14] LABS: BASOPHILS # (AUTO) 0.1 (0.0-0.1); BASOPHILS % 0.8 % (0.0-1.0); EOSINOPHILS # (AUTO) 0.4 (0.0-0.4); EOSINOPHILS % 5.7 % (0.0-6.0); HEMATOCRIT 41.4 % (38.2-49.6); HEMOGLOBIN 12.9 g/dL (14.0-18.0); LYMPHOCYTES # (AUTO) 0.7 (1.0-3.2); LYMPHOCYTES % 9.1 % (18.0-39.1); MEAN CORPUSCULAR HEMOGLOBIN 29.4 pg (28-32); MEAN CORPUSCULAR HGB CONC 31.2 g/dL (31-35); MEAN CORPUSCULAR VOLUME 94.3 fL (81-99); MONOCYTES # (AUTO) 0.4 (0.2-0.8); MONOCYTES % 5.3 % (4.4-11.3); NEUTROPHILS # (AUTO) 5.9 (2.1-6.9); NEUTROPHILS % 78.7 % (38.7-80.0); PLATELET COUNT 170 x10e3/uL (140-360); RED BLOOD COUNT 4.39 x10e6/uL (4.3-5.7); RED CELL DISTRIBUTION WIDTH 15.3 % (11.7-14.4)
[2025-02-01 11:25] LABS: ALBUMIN 2.9 g/dL (3.5-5.0); ALBUMIN/GLOBULIN RATIO 0.7 (0.8-2.0); ANION GAP 13.4 mmol/L (8-16); BILIRUBIN,TOTAL 0.4 mg/dL (0.2-1.2); CREATININE, SERUM 1.54 mg/dL (0.72-1.25)
[2025-02-01 11:26] LABS: POTASSIUM 3.4 mmol/L (3.5-5.1)
[2025-02-01 11:27] LABS: INR 1.05; PROTHROMBIN TIME 14.3 seconds (11.9-14.5)
[2025-02-01 11:28] LABS: PARTIAL THROMBOPLASTIN TIME 38.3 seconds (23.8-35.5)
[2025-02-01] MEDS: SODIUM CHLORIDE 0.9% 1000ML 1,000 ML IV STA (11:32)
[2025-02-01 11:36] LABS: TROPONIN I 0.015 ng/mL (0-0.300)
[2025-02-01 12:56] LABS: BILIRUBIN,URINE NEGATIVE (NEGATIVE); CLARITY,URINE CLEAR (CLEAR); COLOR,URINE YELLOW (YELLOW); GLUCOSE, URINE NEGATIVE (NEGATIVE); KETONES,URINE NEGATIVE (NEGATIVE); LEUKOCYTE ESTERASE ,URINE SMALL (NEGATIVE); NITRITE,URINE NEGATIVE (NEGATIVE); PH,URINE 5.5 (5 - 7); PROTEIN,URINE DIPSTICK NEGATIVE (NEGATIVE); URINE UROBILINOGEN 0.2 mg/dL (0.2 - 1)
[2025-02-01 13:04] LABS: BACTERIA,URINE MODERATE /HPF; EPITHELIAL CELLS,URINE FEW /LPF; RBC,URINE 21-50 /HPF (0-5)
[2025-02-01] MEDS ORDERED: ONDANSETRON HCL INJ 2MG/ML 2ML 2 MG/ML VIAL IV PRN (13:30)
[2025-02-01] MEDS: VANCOMYCIN 1.25GM/250 ML (PEG) 250 ML IV ONE (14:35)
[2025-02-01] MEDS: SODIUM CHLORIDE 0.9% 1000ML 1,000 ML IV ONE (14:35)
[2025-02-01] MEDS ORDERED: ALLOPURINOL100 MG PO (18:08)
[2025-02-01] MEDS ORDERED: CARVEDILOL3.125 MG PO (18:08)
[2025-02-01] MEDS ORDERED: LINZESS145 MCG (18:08)
[2025-02-01] MEDS ORDERED: LOVAZA1 GM PO (18:08)
[2025-02-02] VITALS (7 sets, daily range): BP systolic 133–165; BP diastolic 50–88; PULSE 66–92; RESP 17–20; TEMP 97.5–98.6; O2SAT 96–100
[2025-02-02 00:59] LABS: TROPONIN I 0.027 ng/mL (0-0.300)
[2025-02-02] MEDS: LEVOTHYROXINE SODIUM 50 MCG TAB PO SCH (05:24)
[2025-02-02] MEDS: LEVOTHYROXINE SODIUM 125 MCG TAB PO SCH (05:24)
[2025-02-02 05:33] LABS: BASOPHILS % 0.6 % (0.0-1.0); EOSINOPHILS # (AUTO) 0.5 (0.0-0.4); EOSINOPHILS % 7.2 % (0.0-6.0); HEMATOCRIT 36.9 % (38.2-49.6); HEMOGLOBIN 11.7 g/dL (14.0-18.0); LYMPHOCYTES # (AUTO) 0.7 (1.0-3.2); MEAN CORPUSCULAR HEMOGLOBIN 29.3 pg (28-32); MEAN CORPUSCULAR HGB CONC 31.7 g/dL (31-35); MEAN CORPUSCULAR VOLUME 92.3 fL (81-99); MONOCYTES # (AUTO) 0.4 (0.2-0.8); MONOCYTES % 6.6 % (4.4-11.3); NEUTROPHILS # (AUTO) 4.7 (2.1-6.9); NEUTROPHILS % 74.3 % (38.7-80.0); PLATELET COUNT 131 x10e3/uL (140-360); RED CELL DISTRIBUTION WIDTH 15.4 % (11.7-14.4); WHITE BLOOD COUNT 6.37 x10e3/uL (4.8-10.8)
[2025-02-02 05:54] LABS: ALBUMIN 2.7 g/dL (3.5-5.0); ALBUMIN/GLOBULIN RATIO 0.7 (0.8-2.0); ANION GAP 13.6 mmol/L (8-16); BILIRUBIN,TOTAL 0.4 mg/dL (0.2-1.2); CALCIUM 7.8 mg/dL (8.4-10.2); CREATININE, SERUM 1.66 mg/dL (0.72-1.25); POTASSIUM 3.6 mmol/L (3.5-5.1); TOTAL PROTEIN 6.4 g/dL (6.5-8.1)
[2025-02-02 06:05] LABS: CHOL/HDL RATIO 3.6 (3.9-4.7)
[2025-02-02 06:11] LABS: TROPONIN I 0.022 ng/mL (0-0.300)
[2025-02-02] MEDS ORDERED: INSULIN GLARGINE 100 UNITS/ML VIAL SQ SCH (09:00)
[2025-02-02] MEDS: SACUBITRIL/VALSARTAN 24MG/26MG 1 EA TAB PO SCH (09:45)
[2025-02-02] MEDS: SIMVASTATIN 20 MG TAB PO SCH (09:45)
[2025-02-02] MEDS: CARVEDILOL 3.125 MG TAB PO SCH (09:46)
[2025-02-02] MEDS: ALLOPURINOL 100 MG TAB PO SCH (09:48)
[2025-02-02] MEDS: APIXABAN 2.5 MG TABLET PO SCH (09:48)
[2025-02-02] MEDS: NON-FORMULARY MEDICATION (Methenamine Hippurate 1 TAB) PO SCH (09:49)
[2025-02-02] MEDS: INSULIN GLARGINE 100 UNITS/ML VIAL SQ SCH (09:54)
[2025-02-02] MEDS: INSULIN LISPRO 100 UNIT/1 ML 3ML VIAL SQ SCH ×2 (16:30→18:03)
[2025-02-02] MEDS ORDERED: DEXTROSE 50% SYRINGE 50 ML IV PRN ×2 (16:30)
[2025-02-02] MEDS ORDERED: INSULIN LISPRO 100 UNIT/1 ML 3ML VIAL SQ SCH (16:30)
[2025-02-03] VITALS (8 sets, daily range): BP systolic 130–156; BP diastolic 61–94; PULSE 64–84; RESP 16–19; TEMP 97.6–98.3; O2SAT 98–100
[2025-02-03 06:04] LABS: ANION GAP 13.6 mmol/L (8-16); CALCIUM 8.1 mg/dL (8.4-10.2); CREATININE, SERUM 1.5 mg/dL (0.72-1.25); POTASSIUM 3.6 mmol/L (3.5-5.1)
[2025-02-04] VITALS (8 sets, daily range): BP systolic 122–159; BP diastolic 63–89; PULSE 62–69; RESP 18–20; TEMP 97.4–98.1; O2SAT 97–100
[2025-02-04 05:46] LABS: BASOPHILS % 0.7 % (0.0-1.0); EOSINOPHILS # (AUTO) 0.4 (0.0-0.4); EOSINOPHILS % 7.4 % (0.0-6.0); HEMATOCRIT 37.7 % (38.2-49.6); HEMOGLOBIN 11.8 g/dL (14.0-18.0); LYMPHOCYTES # (AUTO) 0.7 (1.0-3.2); LYMPHOCYTES % 12.2 % (18.0-39.1); MEAN CORPUSCULAR HEMOGLOBIN 28.9 pg (28-32); MEAN CORPUSCULAR HGB CONC 31.3 g/dL (31-35); MEAN CORPUSCULAR VOLUME 92.2 fL (81-99); MONOCYTES # (AUTO) 0.4 (0.2-0.8); MONOCYTES % 6.7 % (4.4-11.3); NEUTROPHILS # (AUTO) 4.4 (2.1-6.9); NEUTROPHILS % 72.7 % (38.7-80.0); PLATELET COUNT 143 x10e3/uL (140-360); RED BLOOD COUNT 4.09 x10e6/uL (4.3-5.7); RED CELL DISTRIBUTION WIDTH 15.3 % (11.7-14.4); WHITE BLOOD COUNT 5.98 x10e3/uL (4.8-10.8)
[2025-02-04 06:16] LABS: ANION GAP 13.5 mmol/L (8-16); CREATININE, SERUM 1.49 mg/dL (0.72-1.25); POTASSIUM 3.5 mmol/L (3.5-5.1)
[2025-02-04] MEDS ORDERED: LINZESS145 MCG PO (09:30)
[2025-02-05 03:28] VITALS: BP 176/92; PULSE 67; RESP 18; TEMP 97.3; O2SAT 99
[2025-02-05 07:40] VITALS: BP 176/92; PULSE 67; RESP 18; TEMP 97.3; O2SAT 99
[2025-02-05 08:00] VITALS: BP 151/85; PULSE 68; RESP 20; TEMP 97.6; O2SAT 97
[2025-02-05 12:00] VITALS: BP 162/80; PULSE 76; RESP 20; TEMP 98.2; O2SAT 98
[2025-02-05 16:00] VITALS: BP 140/77; PULSE 68; RESP 20; TEMP 97.6; O2SAT 98
[2025-02-05 20:00] VITALS: BP 147/65; PULSE 66; RESP 18; TEMP 97.4; O2SAT 100
[2025-02-06] VITALS (8 sets, daily range): BP systolic 137–173; BP diastolic 69–89; PULSE 60–69; RESP 16–20; TEMP 97.3–98.8; O2SAT 97–99
[2025-02-06 06:13] LABS: BASOPHILS % 0.5 % (0.0-1.0); EOSINOPHILS # (AUTO) 0.4 (0.0-0.4); EOSINOPHILS % 7.6 % (0.0-6.0); HEMATOCRIT 37.1 % (38.2-49.6); HEMOGLOBIN 11.7 g/dL (14.0-18.0); LYMPHOCYTES # (AUTO) 0.7 (1.0-3.2); LYMPHOCYTES % 12.2 % (18.0-39.1); MEAN CORPUSCULAR HEMOGLOBIN 29.3 pg (28-32); MEAN CORPUSCULAR HGB CONC 31.5 g/dL (31-35); MEAN CORPUSCULAR VOLUME 92.8 fL (81-99); MONOCYTES # (AUTO) 0.5 (0.2-0.8); MONOCYTES % 8.3 % (4.4-11.3); NEUTROPHILS % 71.2 % (38.7-80.0); PLATELET COUNT 148 x10e3/uL (140-360); RED CELL DISTRIBUTION WIDTH 15.5 % (11.7-14.4); WHITE BLOOD COUNT 5.64 x10e3/uL (4.8-10.8)
[2025-02-06 06:36] LABS: ANION GAP 13.6 mmol/L (8-16); CALCIUM 8.1 mg/dL (8.4-10.2); CREATININE, SERUM 1.43 mg/dL (0.72-1.25); POTASSIUM 3.6 mmol/L (3.5-5.1)
[2025-02-07] VITALS: BP 152/67; PULSE 61; RESP 18; TEMP 97.7; O2SAT 96
[2025-02-07 04:00] VITALS: BP 154/74; PULSE 67; RESP 18; TEMP 97.7; O2SAT 96
[2025-02-07 08:00] VITALS: BP 154/74; PULSE 67; RESP 18; TEMP 97.7; O2SAT 96
[2025-02-07 09:08] VITALS: BP 185/76; PULSE 71; RESP 19; TEMP 97; O2SAT 99
[2025-02-07 12:43] VITALS: BP 142/66; PULSE 65; RESP 18; TEMP 97.9; O2SAT 98
== END 2025-02-07 14:22 | disposition home or self-care (01) | DRG 699 ==
LOC: ER 10:54 → ERHOLD 13:32 → MED/SURG2 18:09 → OBSVTOIN 02-02 00:05
PROVIDERS: ADMIT Internal Medicine; ATTEND Internal Medicine
DX: T83.510A Infection and inflammatory reaction due to cystostomy catheter, initial encounter (principal); I13.0 Hypertensive heart and chronic kidney disease with heart failure and stage 1 through stage 4 chronic kidney disease, or unspecified chronic kidney disease; I50.32 Chronic diastolic (congestive) heart failure; Z16.12 Extended spectrum beta lactamase (ESBL) resistance; Z16.24 Resistance to multiple antibiotics; I48.20 Chronic atrial fibrillation, unspecified; N30.91 Cystitis, unspecified with hematuria; B96.1 Klebsiella pneumoniae [K. pneumoniae] as the cause of diseases classified elsewhere; Z79.01 Long term (current) use of anticoagulants; I95.1 Orthostatic hypotension; N40.1 Benign prostatic hyperplasia with lower urinary tract symptoms; R33.8 Other retention of urine; R39.14 Feeling of incomplete bladder emptying; R35.1 Nocturia; N52.9 Male erectile dysfunction, unspecified; N43.40 Spermatocele of epididymis, unspecified; N31.9 Neuromuscular dysfunction of bladder, unspecified; N39.3 Stress incontinence (female) (male); N43.3 Hydrocele, unspecified; E11.22 Type 2 diabetes mellitus with diabetic chronic kidney disease; N18.30 Chronic kidney disease, stage 3 unspecified; Z79.4 Long term (current) use of insulin; E89.0 Postprocedural hypothyroidism; I25.10 Atherosclerotic heart disease of native coronary artery without angina pectoris; K21.9 Gastro-esophageal reflux disease without esophagitis; E78.5 Hyperlipidemia, unspecified; D63.1 Anemia in chronic kidney disease; W18.11XA Fall from or off toilet without subsequent striking against object, initial encounter; Y92.002 Bathroom of unspecified non-institutional (private) residence as the place of occurrence of the external cause; Y83.3 Surgical operation with formation of external stoma as the cause of abnormal reaction of the patient, or of later complication, without mention of misadventure at the time of the procedure; Y92.009 Unspecified place in unspecified non-institutional (private) residence as the place of occurrence of the external cause; R53.81 Other malaise; E66.9 Obesity, unspecified; Z68.29 Body mass index [BMI] 29.0-29.9, adult; Z85.528 Personal history of other malignant neoplasm of kidney; Z85.850 Personal history of malignant neoplasm of thyroid; Z79.899 Other long term (current) drug therapy; Z79.82 Long term (current) use of aspirin
CPT/HCPCS: 36415; 70450; 71045; 80048; 80053; 80061; 81001; 82550; 82948; 83036; 83605; 83880; 84484; 85025; 85610; 85730; 87040; 87086; 87186; 93005; 94799; 96372; 99284; G0378; J1815; J2470; J2543; J7030

== ENCOUNTER 2025-05-30 21:19 | Inpatient (IN) | payer MEDICARE ==
[~2025-05-30] VITALS: Ht 180.3 cm; Wt 95.3 kg
[~2025-05-30 21:19] MED LIST changes: +ALLOPURINOL100 MG PO; +CARVEDILOL3.125 MG PO; +LINZESS145 MCG; +LINZESS145 MCG PO; +LOVAZA1 GM PO
[2025-05-30 21:55] LABS: BASOPHILS % 0.1 % (0.0-1.0); EOSINOPHILS % 0.3 % (0.0-6.0); LYMPHOCYTES % 1.8 % (18.0-39.1); MONOCYTES % 5.1 % (4.4-11.3); NEUTROPHILS % 92.0 % (38.7-80.0); RED CELL DISTRIBUTION WIDTH 14.3 % (11.7-14.4)
[2025-05-30 22:00] LABS: EST GLOMERULAR FILTRATION RATE 41.0 ML/MIN (>=60)
[2025-05-30 22:02] LABS: LEUKOCYTE ESTERASE ,URINE TRACE (NEGATIVE); PROTEIN,URINE DIPSTICK >=300 (NEGATIVE); URINE UROBILINOGEN 0.2 mg/dL (0.2 - 1)
[2025-05-30] MEDS: INSULIN REGULAR, HUMAN 100 UNIT/1 ML SQ ONE (22:26)
[2025-05-30 22:32] LABS: EPITHELIAL CELLS,URINE FEW /LPF; WBC,URINE (MAN) 0-5 /HPF (0-5)
[2025-05-30 22:33] LABS: TRIPLE PHOSPHATE CRYSTAL,UR MANY
[2025-05-31] VITALS (11 sets, daily range): BP systolic 105–140; BP diastolic 48–87; PULSE 66–83; RESP 16–20; TEMP 97.3–99; O2SAT 96–98
[2025-05-31] MEDS ORDERED: SODIUM CHLORIDE FLUSH 10 ML SYR INJ PRN
[2025-05-31] MEDS ORDERED: DEXTROSE 50% SYRINGE 50 ML IV PRN (00:15)
[2025-05-31] MEDS: MEROPENEM 1 GM in SODIUM CHLORIDE 0.9% 100 ML IV SCH (00:39)
[2025-05-31] MEDS: INSULIN REGULAR, HUMAN 100 UNIT/1 ML SQ SCH ×2 (08:13→11:55)
[2025-05-31 10:49] LABS: BASOPHILS % 0.3 % (0.0-1.0); EOSINOPHILS % 0.2 % (0.0-6.0); LYMPHOCYTES % 3.7 % (18.0-39.1); MONOCYTES % 6.9 % (4.4-11.3); NEUTROPHILS % 87.7 % (38.7-80.0); RED CELL DISTRIBUTION WIDTH 14.5 % (11.7-14.4)
[2025-05-31 11:27] LABS: EST GLOMERULAR FILTRATION RATE 40.0 ML/MIN (>=60)
[2025-05-31] MEDS: HYDROCORTISONE ACETATE 25 MG/SUPP.RECT SUPP RC SCH (11:30)
[2025-05-31] MEDS: AMIODARONE HCL 200 MG TAB PO SCH (11:53)
[2025-05-31 12:07] LABS: LYMPHOCYTES % (MANUAL) 2 % (19-48); MONOCYTES % (MANUAL) 6 % (3.4-9.0); NEUTROPHILS % (MANUAL) 92 % (40-74); PLATELET ESTIMATE ADEQUATE; PLATELET MORPHOLOGY COMMENT NORMAL
[2025-05-31] MEDS ORDERED: HYDROCORTISONE ACETATE 25 MG/SUPP.RECT SUPP RC SCH (15:00)
[2025-05-31] MEDS: NON-FORMULARY MEDICATION (Methenamine Hippurate 1 TAB) PO SCH (15:57)
[2025-05-31] MEDS: MUPIROCIN 2% OINT 22 GM TUBE TOP SCH (16:30)
[2025-05-31] MEDS: APIXABAN 2.5 MG TABLET PO SCH (16:36)
[2025-05-31] MEDS: CARVEDILOL 3.125 MG TAB PO SCH (16:36)
[2025-05-31] MEDS: OMEGA 3 POLYUNSAT FATTY ACIDS 1000 MG SOFTGEL PO SCH (16:36)
[2025-05-31] MEDS: ALLOPURINOL 100 MG TAB PO SCH (16:36)
[2025-05-31] MEDS: CRESTOR 10MG PO SCH (20:37)
[2025-05-31] MEDS: INSULIN GLARGINE 100 UNITS/ML VIAL SQ SCH (20:42)
[2025-06-01 00:28] VITALS: BP 107/52; PULSE 70; RESP 18; TEMP 98.7; O2SAT 99
[2025-06-01] MEDS: LEVOTHYROXINE SODIUM 75 MCG TAB PO SCH (05:05)
[2025-06-01] MEDS: LEVOTHYROXINE SODIUM 100 MCG TAB PO SCH (05:05)
[2025-06-01 06:25] LABS: BASOPHILS % 0.2 % (0.0-1.0); EOSINOPHILS % 0.9 % (0.0-6.0); LYMPHOCYTES % 3.2 % (18.0-39.1); MONOCYTES % 4.0 % (4.4-11.3); NEUTROPHILS % 91.2 % (38.7-80.0); RED CELL DISTRIBUTION WIDTH 14.5 % (11.7-14.4)
[2025-06-01 07:06] LABS: EST GLOMERULAR FILTRATION RATE 39.0 ML/MIN (>=60)
[2025-06-01] MEDS ORDERED: SIMVASTATIN 40 MG TAB PO SCH (09:00)
[2025-06-01 09:03] VITALS: BP 124/59; PULSE 74; RESP 18; TEMP 98.2; O2SAT 98
[2025-06-01 09:16] VITALS: BP 124/59; PULSE 74; RESP 18; TEMP 98.2; O2SAT 98
[2025-06-01 11:59] VITALS: BP 106/54; PULSE 77; RESP 16; TEMP 98.3; O2SAT 95
[2025-06-01 16:27] VITALS: BP 94/69; PULSE 70; RESP 18; O2SAT 100
[2025-06-01 18:06] LABS: CORONAVIRUS COVID-19 AG NEGATIVE (NEGATIVE)
[2025-06-01 19:52] VITALS: BP 137/72; PULSE 66; RESP 19; TEMP 98; O2SAT 100
[2025-06-01] MEDS: INSULIN GLARGINE 100 UNITS/ML VIAL SQ SCH (21:49)
[2025-06-02] VITALS (7 sets, daily range): BP systolic 101–152; BP diastolic 50–70; PULSE 64–69; RESP 16–18; TEMP 98.5–99.1; O2SAT 97–99
[2025-06-02 06:25] LABS: EST GLOMERULAR FILTRATION RATE 48.0 ML/MIN (>=60)
[2025-06-02 06:31] LABS: BASOPHILS % 0.4 % (0.0-1.0); EOSINOPHILS % 3.2 % (0.0-6.0); LYMPHOCYTES % 9.9 % (18.0-39.1); MONOCYTES % 8.2 % (4.4-11.3); NEUTROPHILS % 77.9 % (38.7-80.0); RED CELL DISTRIBUTION WIDTH 14.3 % (11.7-14.4)
[2025-06-02] MEDS: POLYETHYLENE GLYCOL 3350 17 GM PACK PO ONE (22:01)
[2025-06-02] MEDS: SIMETHICONE 40 MG/0.6 ML BTL PO ONE (22:05)
[2025-06-03 00:18] VITALS: BP 168/64; PULSE 68; RESP 18; TEMP 98.9; O2SAT 98
[2025-06-03 04:49] VITALS: BP 145/65; PULSE 72; RESP 18; TEMP 98.6; O2SAT 98
[2025-06-03 07:55] VITALS: BP 129/54; PULSE 65; RESP 17; TEMP 97.6; O2SAT 97
[2025-06-03 08:45] VITALS: BP 129/54; PULSE 65; RESP 17; TEMP 97.6; O2SAT 97
[2025-06-03] MEDS: SACUBITRIL/VALSARTAN 24MG/26MG 1 EA TAB PO SCH (11:43)
[2025-06-03 12:23] VITALS: BP 124/64; PULSE 65; RESP 18; TEMP 97.6; O2SAT 97
[2025-06-04] MEDS ORDERED: LINZESS72 MCG BLADIN (01:01)
== END 2025-06-03 14:46 | disposition home or self-care (01) | DRG 690 ==
LOC: ER 22:13 → ERHOLD 23:57 → MED/SURG3 05-31 00:50 → ER 05-31 00:50
PROVIDERS: ADMIT Family Medicine Adult Medicine; ATTEND Family Medicine Adult Medicine
PROC: 02HV33Z Insertion of Infusion Device into Superior Vena Cava, Percutaneous Approach (ICD-10-PCS; principal; 2025-06-02)
DX: N39.0 Urinary tract infection, site not specified (principal); I13.0 Hypertensive heart and chronic kidney disease with heart failure and stage 1 through stage 4 chronic kidney disease, or unspecified chronic kidney disease; I50.32 Chronic diastolic (congestive) heart failure; Z16.12 Extended spectrum beta lactamase (ESBL) resistance; I48.20 Chronic atrial fibrillation, unspecified; E88.09 Other disorders of plasma-protein metabolism, not elsewhere classified; E11.22 Type 2 diabetes mellitus with diabetic chronic kidney disease; N18.30 Chronic kidney disease, stage 3 unspecified; D63.1 Anemia in chronic kidney disease; E89.0 Postprocedural hypothyroidism; B95.62 Methicillin resistant Staphylococcus aureus infection as the cause of diseases classified elsewhere; N40.1 Benign prostatic hyperplasia with lower urinary tract symptoms; N35.919 Unspecified urethral stricture, male, unspecified site; N31.9 Neuromuscular dysfunction of bladder, unspecified; Z11.52 Encounter for screening for COVID-19; K64.9 Unspecified hemorrhoids; Y84.6 Urinary catheterization as the cause of abnormal reaction of the patient, or of later complication, without mention of misadventure at the time of the procedure; Z79.01 Long term (current) use of anticoagulants; Z79.890 Hormone replacement therapy; Z79.4 Long term (current) use of insulin; Z96.0 Presence of urogenital implants; Z85.850 Personal history of malignant neoplasm of thyroid; Z85.528 Personal history of other malignant neoplasm of kidney; Z91.041 Radiographic dye allergy status; Z88.6 Allergy status to analgesic agent
CPT/HCPCS: 36415; 36568; 70450; 71045; 80053; 81001; 82550; 82948; 83036; 83880; 84439; 84443; 84484; 85025; 87086; 87186; 93005; 94799; 99252; 99284; J1815; J2185; J7050

== ENCOUNTER 2025-06-03 19:51 | Inpatient (IN) | payer MEDICARE ==
[~2025-06-03] VITALS: Ht 180.3 cm; Wt 90.7 kg
[2025-06-03 20:30] VITALS: BP 121/82; PULSE 107; RESP 18; TEMP 98.2; O2SAT 95
[2025-06-03 21:30] VITALS: BP 121/82; PULSE 107; RESP 18; TEMP 98.2; O2SAT 95
[2025-06-03] MEDS ORDERED: SODIUM CHLORIDE FLUSH 10 ML SYR IV PRN (22:15)
[2025-06-03] MEDS ORDERED: DEXTROSE 50% SYRINGE 50 ML IV PRN (22:15)
[2025-06-03] MEDS ORDERED: MEROPENEM 1 GM in SODIUM CHLORIDE 0.9% 100 ML IV SCH (22:15)
[2025-06-03] MEDS: MEROPENEM 1 GM in SODIUM CHLORIDE 0.9% 100 ML IV ONE (23:14)
[2025-06-03 23:42] VITALS: BP 126/82; PULSE 107; RESP 18; TEMP 98.2; O2SAT 95
[2025-06-04] VITALS: BP 123/72; PULSE 98; RESP 18; TEMP 98.5; O2SAT 96
[2025-06-04] MEDS ORDERED: LINZESS72 MCG BLADIN (01:01)
[2025-06-04] MEDS: APIXABAN 2.5 MG TABLET PO SCH ×2 (01:13→09:24)
[2025-06-04] MEDS: SACUBITRIL/VALSARTAN 24MG/26MG 1 EA TAB PO ONE (01:13)
[2025-06-04 04:00] VITALS: BP 133/75; PULSE 58; RESP 18; TEMP 97.6; O2SAT 97
[2025-06-04 05:54] LABS: BASOPHILS % 0.6 % (0.0-1.0); EOSINOPHILS % 6.5 % (0.0-6.0); LYMPHOCYTES % 14.7 % (18.0-39.1); MONOCYTES % 13.6 % (4.4-11.3); NEUTROPHILS % 64.2 % (38.7-80.0); RED CELL DISTRIBUTION WIDTH 13.9 % (11.7-14.4)
[2025-06-04] MEDS: LEVOTHYROXINE SODIUM 75 MCG TAB PO SCH (06:00)
[2025-06-04] MEDS: LEVOTHYROXINE SODIUM 100 MCG TAB PO SCH (06:00)
[2025-06-04 06:25] LABS: EST GLOMERULAR FILTRATION RATE 56.0 ML/MIN (>=60)
[2025-06-04 08:42] VITALS: BP 125/69; PULSE 57; RESP 20; TEMP 97.6; O2SAT 100
[2025-06-04] MEDS ORDERED: APIXABAN 2.5 MG TABLET PO SCH (09:00)
[2025-06-04] MEDS: HYDROCORTISONE ACETATE 25 MG/SUPP.RECT SUPP RC SCH (09:00)
[2025-06-04] MEDS: OMEGA 3 POLYUNSAT FATTY ACIDS 1000 MG SOFTGEL PO SCH (09:23)
[2025-06-04] MEDS: ALLOPURINOL 100 MG TAB PO SCH (09:24)
[2025-06-04] MEDS: SACUBITRIL/VALSARTAN 24MG/26MG 1 EA TAB PO SCH (09:24)
[2025-06-04] MEDS: CARVEDILOL 3.125 MG TAB PO SCH (09:24)
[2025-06-04] MEDS: AMIODARONE HCL 200 MG TAB PO SCH (09:24)
[2025-06-04] MEDS: MUPIROCIN 2% OINT 22 GM TUBE TOP SCH (09:25)
[2025-06-04] MEDS: MEROPENEM 1 GM in SODIUM CHLORIDE 0.9% 100 ML IV SCH (09:32)
[2025-06-04] MEDS: INSULIN REGULAR, HUMAN 100 UNIT/1 ML SQ SCH (09:37)
[2025-06-04 12:18] VITALS: BP 127/74; PULSE 62; RESP 18; TEMP 98.6; O2SAT 98
[2025-06-04 15:42] VITALS: BP 133/83; PULSE 61; RESP 18; TEMP 98.3; O2SAT 100
[2025-06-04 20:00] VITALS: BP 131/67; PULSE 59; RESP 18; TEMP 98.1; O2SAT 100
[2025-06-04] MEDS: INSULIN GLARGINE 100 UNITS/ML VIAL SQ SCH (21:00)
[2025-06-04] MEDS: CRESTOR 10MG PO SCH (21:26)
[2025-06-05] VITALS (8 sets, daily range): BP systolic 118–145; BP diastolic 61–78; PULSE 59–64; RESP 17–18; TEMP 97.2–98.2; O2SAT 96–100
[2025-06-06] VITALS (8 sets, daily range): BP systolic 58–173; BP diastolic 53–80; PULSE 57–67; RESP 17–20; TEMP 97.2–98; O2SAT 98–100
[2025-06-06] MEDS: MUPIROCIN 2% OINT 22 GM TUBE TOP SCH (12:26)
[2025-06-07] VITALS (7 sets, daily range): BP systolic 120–156; BP diastolic 68–83; PULSE 51–60; RESP 17–18; TEMP 97.4–97.7; O2SAT 97–99
[2025-06-07 06:28] LABS: BASOPHILS % 0.5 % (0.0-1.0); EOSINOPHILS % 6.8 % (0.0-6.0); LYMPHOCYTES % 13.2 % (18.0-39.1); MONOCYTES % 6.4 % (4.4-11.3); NEUTROPHILS % 72.3 % (38.7-80.0); RED CELL DISTRIBUTION WIDTH 13.7 % (11.7-14.4)
[2025-06-07 06:50] LABS: EST GLOMERULAR FILTRATION RATE 56.0 ML/MIN (>=60)
[2025-06-07] MEDS ORDERED: SIMETHICONE 80 MG CHEW PO PRN (09:30)
[2025-06-08] VITALS (7 sets, daily range): BP systolic 135–157; BP diastolic 67–74; PULSE 56–60; RESP 18; TEMP 97.3–98.1; O2SAT 97–99
== END 2025-06-08 21:15 | disposition home health service (06) | DRG 690 ==
LOC: INTOOBSV 19:51 → ERHOLD 19:51 → MED/SURG2 20:23 → OBSVTOIN 06-05 15:27
PROVIDERS: ADMIT Family Medicine Adult Medicine; ATTEND Family Medicine Adult Medicine
DX: N39.0 Urinary tract infection, site not specified (principal); Z16.12 Extended spectrum beta lactamase (ESBL) resistance; I13.0 Hypertensive heart and chronic kidney disease with heart failure and stage 1 through stage 4 chronic kidney disease, or unspecified chronic kidney disease; I48.20 Chronic atrial fibrillation, unspecified; N13.8 Other obstructive and reflux uropathy; D63.1 Anemia in chronic kidney disease; E88.09 Other disorders of plasma-protein metabolism, not elsewhere classified; I50.9 Heart failure, unspecified; E11.22 Type 2 diabetes mellitus with diabetic chronic kidney disease; E11.40 Type 2 diabetes mellitus with diabetic neuropathy, unspecified; B95.62 Methicillin resistant Staphylococcus aureus infection as the cause of diseases classified elsewhere; B96.89 Other specified bacterial agents as the cause of diseases classified elsewhere; E03.9 Hypothyroidism, unspecified; N31.9 Neuromuscular dysfunction of bladder, unspecified; Z96.0 Presence of urogenital implants; N40.1 Benign prostatic hyperplasia with lower urinary tract symptoms; N18.30 Chronic kidney disease, stage 3 unspecified; Z85.528 Personal history of other malignant neoplasm of kidney
CPT/HCPCS: 36415; 80053; 82948; 85025; 99252; G0378; J1335; J1815; J2185; J7050